=== PATIENT | male | born 1960 | race Caucasian/White ===

== ENCOUNTER → 2016-08-05 | Outpatient (REF) | payer MEDICARE, MEDICAID ==
[~2016-08-05] MED LIST: /PANT40TA OR; ALBU83IN INH; AMIL5TA PO; AMILORIDE PO; AMPI500C OR; ASPI81TA83 OR; ASPI81TA85 PO; BACT800T OR; BYDU1INJ SC; CARV12.5 PO; CIPR500T89 PO; CORE10CA PO; CORE12.5 OR; COREG PO; DOCQ100C PO; DRIS50002 PO; DULCOLAX PO; EFFE150C PO; FISH1000 PO; FLOM5CAP PO; GLUC1000 OR; HUMUINJ SC; HYDR-3713 PO; INSULADS SC; INSULANT SC; INSUR50VL SC; IPRASOL4 INH; KLOR10TA OR; KLOR1TAB69 PO; LASI40TA OR; LASI40TA PO; LIPI80TA PO; MAGN64TASA PO; METF1000 PO; NITR4TASL SL; NYST100024 TOP; NYSTATIN TOP; PAIN325T OR; PANT40TA2 PO; PERCOCET PO; PLAV75TA2 OR; PLAV75TA38 PO; POTA8TAB PO; PROS5TAB PO; RISP1TAB OR; RISP1TAB41 PO; RISP4TAB OR; RISP4TAB33 PO; SLO MAG PO; SLOW MAG; SLOWTAB PO; TRAZ300T2 OR; TRAZ300T2 PO; TRIC145T PO; TRIC145T19 OR; VASO10TA OR; VASO5TAB11 PO; VENL75TA2 OR; VICO5TAB OR; ZOCO80TA OR; ZOCO80TA PO; albuterol neb; bydureon SC; duoneb; potassium OR
[2016-08-05 14:33] LABS: MICROSCOPIC INDICATED? MAN YES (NO)
[2016-08-05 14:45] LABS: BACTERIA, URINE NONE SEEN; HYALINE CAST, URINE NONE SEEN /lpf (0-1); SQUAMOUS EPITHELIAL CELL URINE NONE SEEN /hpf (SMALL AMT); WBC, URINE 0-1 /hpf (0-3)
[2016-08-05 14:46] LABS: MICROSCOPIC EXAM PERFORMED
== END ==
LOC: M SMT 12:59
PROVIDERS: ATTEND Nurse Practitioner Women's Health
DX: N40.1 Benign prostatic hyperplasia with lower urinary tract symptoms (principal)
CPT/HCPCS: 81000; 87088; 87186; G0463

== ENCOUNTER → 2016-10-03 | Outpatient (REF) | payer MEDICARE, MEDICAID ==
[2016-10-03 11:38] LABS: ALBUMIN 3.4 GM/DL (3.2-5.2); ALKALINE PHOSPHATASE 80 U/L (45-117); ALT/SGPT 24 U/L (12-78); ANION GAP 12 MEQ/L (8-16); AST/SGOT 14 U/L (15-37); BILIRUBIN,TOTAL 0.6 MG/DL (0.2-1.0); BLOOD UREA NITROGEN 17 MG/DL (7-18); CALCIUM LEVEL 8.9 MG/DL (8.5-10.1); CARBON DIOXIDE LEVEL 28 MEQ/L (21-32); CHLORIDE LEVEL 101 MEQ/L (98-107); CHOLESTEROL LEVEL 126 MG/DL (<200); CREATININE FOR GFR 1.15 MG/DL (0.70-1.30); GLOMERULAR FILTRATION RATE > 60.0 (>56); GLUCOSE, FASTING 210 MG/DL (70-105); POTASSIUM SERUM 4.1 MEQ/L (3.5-5.1); SODIUM LEVEL 141 MEQ/L (136-145); TOTAL PROTEIN 6.8 GM/DL (6.4-8.2); TRIGLYCERIDES LEVEL 108 MG/DL (<150)
== END ==
LOC: M SFHCPLAZ 09:12
PROVIDERS: ATTEND Nurse Practitioner Family
DX: I10 Essential (primary) hypertension (principal); E78.5 Hyperlipidemia, unspecified; E11.51 Type 2 diabetes mellitus with diabetic peripheral angiopathy without gangrene; E55.9 Vitamin D deficiency, unspecified

== ENCOUNTER → 2016-10-24 | Outpatient (REF) | payer MEDICARE, MEDICAID ==
[2016-10-24 15:44] LABS: ANION GAP 9 MEQ/L (8-16); BLOOD UREA NITROGEN 19 MG/DL (7-18); CALCIUM LEVEL 9.1 MG/DL (8.5-10.1); CARBON DIOXIDE LEVEL 29 MEQ/L (21-32); CHLORIDE LEVEL 101 MEQ/L (98-107); CREATININE FOR GFR 1.12 MG/DL (0.70-1.30); GLOMERULAR FILTRATION RATE > 60.0 (>56); GLUCOSE, FASTING 163 MG/DL (70-105); SODIUM LEVEL 139 MEQ/L (136-145)
== END ==
LOC: M LABDRAW1 15:15
PROVIDERS: ATTEND Internal Medicine Endocrinology, Diabetes & Metabolism
DX: E11.65 Type 2 diabetes mellitus with hyperglycemia (principal)

== ENCOUNTER → 2017-02-15 | Outpatient (REF) | payer MEDICARE, MEDICAID ==
[~2017-02-15] MED LIST changes: +CIPR-249 PO; -CIPR500T89 PO; -METF1000 PO; +METF10004 PO; -NYST100024 TOP; +NYST1POW9 TOP; +PLAV1TAB2 PO; -PLAV75TA38 PO; +POTA1TAB21 PO; -POTA8TAB PO; -RISP1TAB41 PO; +RISP1TAB42 PO; -TRIC145T PO; +TRIC145T22 PO
[2017-02-15 14:11] LABS: MEAN CORPUSCULAR HEMOGLOBIN 32.4 pg (27.0-33.0); MEAN CORPUSCULAR HGB CONC 33.9 g/dl (32.0-36.5); MEAN CORPUSCULAR VOLUME 95.5 fl (80.0-96.0); WHITE BLOOD COUNT 12.2 K/mm3 (4.0-10.0)
[2017-02-15 14:31] LABS: ALBUMIN 3.5 GM/DL (3.2-5.2); ALKALINE PHOSPHATASE 75 U/L (45-117); ALT/SGPT 23 U/L (12-78); ANION GAP 8 MEQ/L (8-16); AST/SGOT 18 U/L (15-37); BILIRUBIN,TOTAL 0.7 MG/DL (0.2-1.0); BLOOD UREA NITROGEN 13 MG/DL (7-18); CARBON DIOXIDE LEVEL 27 MEQ/L (21-32); CHLORIDE LEVEL 104 MEQ/L (98-107); CHOLESTEROL LEVEL 107 MG/DL (<200); CREATININE FOR GFR 1.16 MG/DL (0.70-1.30); FREE T4 1.18 NG/DL (0.76-1.46); GLOMERULAR FILTRATION RATE > 60.0 (>56); GLUCOSE, FASTING 136 MG/DL (70-105); POTASSIUM SERUM 4.4 MEQ/L (3.5-5.1); SODIUM LEVEL 139 MEQ/L (136-145); TRIGLYCERIDES LEVEL 73 MG/DL (<150)
== END ==
LOC: M SFHCPLAZ 13:39
PROVIDERS: ATTEND Family Medicine
DX: G47.33 Obstructive sleep apnea (adult) (pediatric) (principal); J44.9 Chronic obstructive pulmonary disease, unspecified; E78.5 Hyperlipidemia, unspecified; E11.51 Type 2 diabetes mellitus with diabetic peripheral angiopathy without gangrene

== ENCOUNTER 2017-07-12 07:29 | Inpatient (IN) | payer MEDICARE, MEDICAID ==
[~2017-07-12] VITALS: Ht 172.7 cm; Wt 142.7 kg
[2017-07-12] MEDS ORDERED: ONDANSETRON 4MG/2ML VIAL (J2405) IV ONE (07:45)
[2017-07-12] MEDS ORDERED: JARD1TAB3 PO (07:50)
[2017-07-12] MEDS: MORPHINE 4 MG/ML 1ML SYRINGE IV PRN ×4 (07:54→13:49)
[2017-07-12] MEDS ORDERED: ADACEL/BOOSTRIX VACCINE (DIPHTH/PERTUSS/ACELL/TETANUS)0.5ML SYR (90715) IM ONE (08:00)
[2017-07-12 08:14] LABS: BASO # 0.1 10^3/uL (0.0-0.2); BASO % 0.5 % (0.0-1.0); EOS # 0.5 10^3/uL (0.0-0.50); IMMATURE GRANULOCYTE % 0.7 % (0-0); LYMPH # 2.8 10^3/uL (1.5-4.5); LYMPH % 18.3 % (24.0-44.0); MEAN CORPUSCULAR HEMOGLOBIN 31.6 pg (27.0-33.0); MEAN CORPUSCULAR HGB CONC 34.1 g/dl (32.0-36.5); MEAN CORPUSCULAR VOLUME 92.6 fl (80.0-96.0); MONO # 0.8 10^3/uL (0.0-0.8); NEUTROPHILS % 72.5 % (36.0-66.0); PLATELET COUNT, AUTOMATED 287 10^3/uL (150-450); WHITE BLOOD COUNT 15.2 10^3/uL (4.0-10.0)
[2017-07-12 08:24] LABS: INR 1.03
[2017-07-12 08:35] LABS: ALBUMIN 3.5 GM/DL (3.2-5.2); ALBUMIN/GLOBULIN RATIO 1.06 (1.00-1.93); ALKALINE PHOSPHATASE 78 U/L (45-117); ALT/SGPT 24 U/L (12-78); ANION GAP 8 MEQ/L (8-16); AST/SGOT 14 U/L (7-37); BILIRUBIN,TOTAL 0.8 MG/DL (0.2-1.0); BLOOD UREA NITROGEN 23 MG/DL (7-18); CALCIUM LEVEL 8.7 MG/DL (8.5-10.1); CARBON DIOXIDE LEVEL 26 MEQ/L (21-32); CHLORIDE LEVEL 105 MEQ/L (98-107); CREATININE FOR GFR 1.01 MG/DL (0.70-1.30); GLOMERULAR FILTRATION RATE > 60.0 (>56); GLUCOSE, FASTING 196 MG/DL (70-105); POTASSIUM SERUM 4.2 MEQ/L (3.5-5.1); SODIUM LEVEL 139 MEQ/L (136-145); TOTAL PROTEIN 6.8 GM/DL (6.4-8.2)
[2017-07-12] MEDS ORDERED: IPRASOL4 INH (09:41)
[2017-07-12] MEDS ORDERED: VENL75CA47 PO (09:56)
[2017-07-12] MEDS ORDERED: HYDR-3713 PO (09:56)
[2017-07-12] MEDS ORDERED: CLOP75TA2 PO (09:56)
[2017-07-12] MEDS ORDERED: MORPHINE 4 MG/ML 1ML SYRINGE As Ordered ONE (09:57)
[2017-07-12] MEDS ORDERED: DOXY100C37 PO (10:01)
[2017-07-12] MEDS ORDERED: BISACODYL 5 MG TAB PO PRN (10:15)
[2017-07-12] MEDS ORDERED: PERCOCET 5MG/325MG TAB PO PRN (10:15)
[2017-07-12] MEDS ORDERED: ACETAMINOPHEN TAB 650MG DOSE (2X325MG) PO PRN (10:15)
[2017-07-12] MEDS ORDERED: ALBUTEROL SULFATE 2.5 MG/0.5 ML INH NEB SOLN NEB PRN (10:45)
[2017-07-12] MEDS: PANTOPRAZOLE 40MG TAB (PROTONIX) PO SCH (10:54)
[2017-07-12] MEDS: CARVedilol 12.5 MG TAB PO SCH ×2 (10:54→20:20)
[2017-07-12] MEDS: IPRATROPIUM 0.5MG/ALBUTEROL 2.5MG INH SOL UD 3ML (DUONEB)(J7620) NEB SCH ×3 (11:14→19:47)
[2017-07-12] MEDS ORDERED: NS 1,000 ML IV SCH (11:15)
[2017-07-12] MEDS ORDERED: ALBUTEROL SULFATE 2.5 MG/0.5 ML INH NEB SOLN NEB SCH (12:00)
[2017-07-12 12:25] VITALS: BP 176/95
[2017-07-12] MEDS: SENOKOT S TAB PO SCH ×2 (13:47→20:19)
[2017-07-12] MEDS: PERCOCET 5MG/325MG TAB PO PRN ×2 (13:48→20:22)
[2017-07-12 14:00] VITALS: BP 168/82
[2017-07-12] MEDS ORDERED: NITROGLYCERIN 0.4 MG SUBL TABLET SL PRN (15:00)
[2017-07-12] MEDS ORDERED: GLUCOSE 4 GM CHEW TABLET PO PRN (15:15)
[2017-07-12] MEDS ORDERED: GLUCAGON FOR INJ 1 MG VIAL (J1610) SC PRN (15:15)
[2017-07-12] MEDS ORDERED: DEXTROSE 50% 50 ML SYRINGE IV PRN (15:15)
[2017-07-12] MEDS: POTASSIUM CHLORIDE 10 MEQ SR TABLET PO SCH (15:34)
[2017-07-12] MEDS: OMEGA-3 1050MG CAPSULE PO SCH (15:34)
[2017-07-12] MEDS: HumaLOG INSULIN (NovoLOG) PER UNIT SC SCH (17:43)
[2017-07-12] MEDS: FUROSEMIDE 40 MG TAB PO SCH (17:43)
--- NOTE | 2017-07-12 17:44 | REP ---
RIGHT ANKLE: Three views of the right ankle are performed. There are fractures of the distal tibia at the medial malleolus as well as the distal fibula with lateral displacement and angulation. Posterior malleolus of the distal tibia is also fractured. Signed by Stanley Driver MD 07/13/2017 08:25 P
--- NOTE | 2017-07-12 17:45 | REP ---
RIGHT LOWER LEG: AP and lateral views of the right lower leg are performed. Three total views are obtained. There are fractures noted of the distal fibula, medial malleolus and posterior malleolus with lateral displacement and angulation. No other fractures are seen more proximally. Signed by Stanley Driver MD 07/13/2017 08:25 P
--- NOTE | 2017-07-12 17:51 | REP ---
CHEST, TWO VIEWS: Two views of the chest are performed and compared to prior study 09/11/2012. There is mild cardiomegaly and venous hypertension. No infiltrates are seen. Mediastinal silhouette is unremarkable. There are mild degenerative changes of the spine. IMPRESSION: No acute infiltrate. Signed by Stanley Driver MD 07/13/2017 08:25 P
--- NOTE | 2017-07-12 18:14 | REP ---
Right ankle series: Three views: History: Post reduction. Comparison films done earlier demonstrate a trimalleolar fracture dislocation. Findings: Portably obtained AP lateral and oblique radiographs demonstrate improved alignment of the tibiotalar articulation. There is still considerable lateral subluxation/dislocation. The talus is displaced approximately 1.5 cm laterally. Medial and lateral malleolar and posterior tibial fracture components are again seen. The posterior tibial component appears well aligned on lateral film. There is a bone island in the calcaneus. Impression: Improved fracture dislocation at the ankle. 1.5 cm of lateral subluxation of the talus relative to the tibia persists. Signed by Ian Oh MD 07/13/2017 08:03 A
--- NOTE | 2017-07-12 19:32 | ECGEPIP ---
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
[2017-07-12] MEDS: ATORVASTATIN 20 MG TAB PO SCH (20:20)
[2017-07-12] MEDS: FENOFIBRATE 145 MG TAB (TRICOR) PO SCH (20:21)
[2017-07-12] MEDS: ENALAPRIL MALEATE 5 MG TAB PO SCH (20:21)
[2017-07-12] MEDS ORDERED: LEVEMIR (INSULIN DETEMIR) 1 UNITS/0.01ML SC ONE (21:00)
[2017-07-12 22:00] VITALS: BP 127/63
[2017-07-13] VITALS (7 sets, daily range): BP systolic 109–137; BP diastolic 16–83; O2SAT 98
[2017-07-13] MEDS: HumaLOG INSULIN (NovoLOG) PER UNIT SC SCH ×5 (00:07→20:59)
[2017-07-13] MEDS: PERCOCET 5MG/325MG TAB PO PRN ×5 (00:08→18:30)
[2017-07-13] MEDS: IPRATROPIUM 0.5MG/ALBUTEROL 2.5MG INH SOL UD 3ML (DUONEB)(J7620) NEB SCH ×4 (06:11→19:50)
[2017-07-13 06:56] LABS: MEAN CORPUSCULAR HEMOGLOBIN 31.1 pg (27.0-33.0); MEAN CORPUSCULAR HGB CONC 32.9 g/dl (32.0-36.5); MEAN CORPUSCULAR VOLUME 94.5 fl (80.0-96.0); PLATELET COUNT, AUTOMATED 282 10^3/uL (150-450); RED CELL DISTRIBUTION WIDTH 13.1 % (11.5-14.5); WHITE BLOOD COUNT 16.3 10^3/uL (4.0-10.0)
[2017-07-13 07:09] LABS: ALBUMIN/GLOBULIN RATIO 0.83 (1.00-1.93); ALKALINE PHOSPHATASE 69 U/L (45-117); ALT/SGPT 19 U/L (12-78); ANION GAP 6 MEQ/L (8-16); AST/SGOT 11 U/L (7-37); BILIRUBIN,TOTAL 1.1 MG/DL (0.2-1.0); BLOOD UREA NITROGEN 21 MG/DL (7-18); CALCIUM LEVEL 8.3 MG/DL (8.5-10.1); CARBON DIOXIDE LEVEL 31 MEQ/L (21-32); CHLORIDE LEVEL 103 MEQ/L (98-107); CREATININE FOR GFR 1.23 MG/DL (0.70-1.30); GLOMERULAR FILTRATION RATE > 60.0 (>56); GLUCOSE, FASTING 147 MG/DL (70-105); POTASSIUM SERUM 3.9 MEQ/L (3.5-5.1); SODIUM LEVEL 140 MEQ/L (136-145); TOTAL PROTEIN 6.6 GM/DL (6.4-8.2)
[2017-07-13] MEDS ORDERED: D5W/0.45% SODIUM CHLORIDE 1,000 ML IV SCH (08:00)
[2017-07-13] MEDS: OMEGA-3 1050MG CAPSULE PO SCH (08:30)
[2017-07-13] MEDS: SENOKOT S TAB PO SCH ×2 (08:30→21:21)
[2017-07-13] MEDS: PANTOPRAZOLE 40MG TAB (PROTONIX) PO SCH (08:30)
[2017-07-13] MEDS: VENLAFAXINE **XR** 75MG CAPSULE PO SCH (08:31)
[2017-07-13] MEDS: POTASSIUM CHLORIDE 10 MEQ SR TABLET PO SCH (08:31)
[2017-07-13] MEDS: CARVedilol 12.5 MG TAB PO SCH ×2 (08:32→21:21)
[2017-07-13] MEDS: ENALAPRIL MALEATE 5 MG TAB PO SCH ×2 (08:34→22:18)
[2017-07-13] MEDS: FUROSEMIDE 40 MG TAB PO SCH (08:34)
[2017-07-13] MEDS ORDERED: FINASTERIDE 5 MG TAB PO SCH (09:00)
[2017-07-13] MEDS ORDERED: TAMSULOSIN 0.4 MG CAP PO SCH (09:00)
[2017-07-13] MEDS ORDERED: ceFAZolin 1GM INJ (J0690 PER 500MG) As Ordered ONE (12:20)
[2017-07-13] MEDS ORDERED: MIDAZOLAM INJ 2 MG/2 ML VIAL (J2250) As Ordered ONE (12:38)
[2017-07-13] MEDS ORDERED: fentaNYL 100 MCG/2 ML INJECTION (J3010) As Ordered ONE (12:38)
[2017-07-13] MEDS ORDERED: LIDOCAINE 2% INJ 100 MG/5 ML SDV (FOR ANES.) As Ordered ONE (12:38)
[2017-07-13] MEDS ORDERED: ONDANSETRON 4MG/2ML VIAL (J2405) As Ordered ONE (12:38)
[2017-07-13] MEDS ORDERED: METOCLOPRAMIDE INJ 10MG/2ML VIAL (J2765) As Ordered ONE (12:38)
[2017-07-13] MEDS ORDERED: PROPOFOL 200 MG/20 ML VIAL As Ordered ONE (12:38)
[2017-07-13] MEDS ORDERED: ALBUTEROL SULFATE 2.5 MG/0.5 ML INH NEB SOLN As Ordered ONE ×2 (12:44→15:47)
[2017-07-13] MEDS ORDERED: LIDOCAINE W/EPINEPHRINE 1% 20ML VIAL As Ordered ONE (12:57)
[2017-07-13] MEDS ORDERED: ceFAZolin 2 GM/D5W 50 ML IV BAG (J0690 PER 500MG) As Ordered ONE (13:46)
[2017-07-13] MEDS ORDERED: HYDROmorphone HCL 2 MG/ML 1ML VIAL (J1170) As Ordered ONE (13:53)
[2017-07-13] MEDS ORDERED: PHENYLephrine HCL 500 MCG/5 ML (100MCG/ML) SYRINGE (J2370) As Ordered ONE ×2 (14:11→14:20)
[2017-07-13] MEDS ORDERED: SUGAMMADEX SODIUM 500 MG/5 ML VIAL (BRIDION) As Ordered ONE (15:22)
--- NOTE | 2017-07-13 15:31 | REP ---
RIGHT ANKLE: Three views of the right ankle are performed. Metallic plate and screws are seen in the distal fibula and there are metallic screws in the medial malleolus. Structures are well aligned. Ankle mortise is anatomic. 36 seconds of fluoroscopy time utilized. Signed by Stanley Driver MD 07/13/2017 08:41 P
[2017-07-13] MEDS ORDERED: PERCOCET 5MG/325MG TAB As Ordered ONE ×2 (15:33→16:12)
[2017-07-13] MEDS ORDERED: ONDANSETRON 4MG/2ML VIAL (J2405) IV PRN (16:00)
[2017-07-13] MEDS ORDERED: fentaNYL 100 MCG/2 ML INJECTION (J3010) IV PRN (16:00)
[2017-07-13] MEDS ORDERED: MORPHINE 10 MG/ML 1ML VIAL IV PRN (16:00)
[2017-07-13] MEDS ORDERED: LR 1,000 ML IV SCH (16:00)
[2017-07-13] MEDS ORDERED: PERCOCET 5MG/325MG TAB PO PRN (16:15)
[2017-07-13] MEDS ORDERED: PROMETHAZINE INJ 25 MG/ML VIAL (J2550) IV PRN (16:15)
[2017-07-13] MEDS ORDERED: ALBUTEROL SULFATE 2.5 MG/0.5 ML INH NEB SOLN INH ONE (16:15)
[2017-07-13] MEDS ORDERED: D5W/LR 1,000 ML IV SCH (16:15)
[2017-07-13] MEDS ORDERED: MORPHINE 2 MG/ML 1ML SYRINGE IV PRN (16:15)
[2017-07-13] MEDS ORDERED: GLUCAGON FOR INJ 1 MG VIAL (J1610) SC PRN (18:00)
[2017-07-13] MEDS ORDERED: GLUCOSE 4 GM CHEW TABLET PO PRN (18:00)
[2017-07-13] MEDS ORDERED: DEXTROSE 50% 50 ML SYRINGE IV PRN (18:00)
--- NOTE | 2017-07-13 21:19 | HPE ---
DATE OF ADMISSION: 07/12/2017 CHIEF COMPLAINT: Painful ankle. HISTORY: A 57-year-old white male who was in his usual state of health until this morning. He got up and went outside to have a smoke, slipped on ice, fell, sustaining injury to the right ankle. Seen in the emergency room (ER) and fracture identified as one requiring manipulation and surgical fixation. Dr. Vu has reviewed the images and agrees to take the patient to the operating room (OR) later today for operative reduction and internal fixation of the injury. The patient's pain is at this time fairly well controlled. He is status post reduction performed by Dr. Orr and is resting fairly comfortably at this time. Mr. Jones's past medical history is long and complicated and includes a history of coronary artery disease status post drug-eluting stent placed in the left anterior descending (LAD) in 2007 and in the right coronary at that time as well. His last stress test was performed by Dr. Forrest's office, and that showed an ejection fraction of 55%, residual effects from previous infarctions involving the basal inferolateral, basal inferior, and basal inferoseptal wall of moderate intensity. There was some improvement with these defects at rest. Despite these findings, it was thought that the patient was not a candidate for any intervention, and medical therapy was continued and no intervention was recommended at that time. PAST MEDICAL HISTORY: Includes: 1. High blood pressure. 2. Type 2 diabetes. He had been on insulin and continues on insulin, and with weight loss he has been able to reduce his insulin treatment intensity. 3. Chronic obstructive pulmonary disease (COPD). The patient continues to smoke, having reduced his smoking behavior from three packs per day now down to less than one. 4. He also has a history of a kidney stone and had lithotripsy and a stent in 2015 and then 2016. 5. Colonoscopy 2012. 6. Stroke occurred 2014, and he had some left-sided weakness and tingling, which has completely resolved. FAMILY HISTORY: Positive for multiple family members with diabetes mellitus. CURRENT MEDICATIONS: Include: - Effexor 75 mg three tablets daily - Bydureon 2 mg injected subcutaneous weekly on Fridays - Jardiance 25 mg daily - Proscar 5 mg by mouth daily, - Flomax 0.4 mg two tablets daily - Proventil metered-dose inhaler (MDI) two puffs every 4 as needed - DuoNeb one ampule every 4 hours as needed - Protonix 40 mg daily - Vasotec 5 mg twice a day - aspirin 81 mg daily - Plavix 75 mg daily - furosemide 40 mg twice a day - nitroglycerin sublingual 0.4 mg as needed for chest pain - potassium chloride 8 mEq daily - Slow-magnesium one twice a day - docusate sodium 100 mg twice a day - Tricor 145 mg daily - Lipitor 80 mg daily - hydrocodone/acetaminophen 5/325 one by mouth four times a day as needed for pain - Coreg 12.5 mg twice a day Last seen in the office by Jeanne Lawson on July 05, and that time medication list verified. SOCIAL HISTORY: Smoker, as noted. No significant alcohol consumption. ALLERGIES: No known drug allergies. REVIEW OF SYSTEMS: Denies headaches or dizziness. Denies chest pain, palpitations, of dysphagia. Denies abdominal pain, constipation, or diarrhea. He is able to be physically active, walking he says 2-3 hours daily. Engages in routine household activities equivalent to least four metabolic equivalents (METS) or greater without chest pain or dyspnea. Denies orthopnea or palpitations. No recent change in ankle swelling and denies calf pain. PHYSICAL EXAMINATION: GENERAL: The patient is alert, oriented, pleasant, cooperative. No acute distress. Blood pressure 166/71, pulse 79, respiratory rate 16, 96% oxygen saturation on room air. HEENT: Normocephalic, atraumatic. Pupils equal and reactive. Facies are symmetric. Speech is clear. No neck mass. No carotid bruits are heard. No thyroid enlargement or nodules are noted. LUNGS: Equal expansion. Reasonable air flow. No wheezing, rales, or rhonchi heard. HEART: Regular rhythm. No murmur identified. ABDOMEN: Obese. No mass, guarding, or tenderness. No rebound. EXTREMITIES: Right ankle is in a splint. He has no edema. Pulse palpable in the left. NEUROLOGIC: He is alert. No deficits remain at this time. His gait was not tested, but he moves all extremities spontaneously and denies a sensory deficit. According the ER, he has a weight of 139.253 kg. Other data obtained so far in the emergency department include white count 15,200 with hemoglobin of 15.9, platelet count 287,000. Electrolytes were remarkable only for BUN of 23, creatinine 1.01. His last A1c done in the office was in 2015, and it was over 11. The test had been requested in December, but for reasons unknown patient had not had the test completed. Protime was normal at 13.6. EKG was reviewed and shows regular sinus rhythm. Poor R-wave progression. No changes from 2015 record. X-ray of the tibia-fibula/ankle show a fracture which is requiring orthopedics consultation. Chest x-ray, which is anterior-posterior (AP) and lateral, shows no definite infiltrate. The bases are hazy, likely due to obesity. Heart size is increased, but upper lobe distribution is not appreciated, although bronchial markings are prominent. 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 This fracture is deemed by art specialist to require surgical immobilization to achieve an optimal outcome. The patient has been nothing by mouth. He has not had his morning medications yet. We will try to make sure that he gets his carvedilol and Protonix before surgery. He will remain nothing by mouth through the day. We have ordered four times a day blood sugars with a parameter for calling the physician. Will provide some supportive hydration through the day in preparation for his surgery, which is anticipated will be later today. The fact that the patient is on dual antiplatelet therapy was made clear to the surgeon, who acknowledges the hazard and feels the need to proceed urgently. The patient has multiple risk factors that correlate with revised cardiac risk index identification of risk factors, including history of coronary disease, history of stroke/transient ischemic attack (TIA), history of diabetes mellitus requiring insulin therapy. This aggregate identifies him according to revised cardiac risk index criteria as being greater than 11% of cardiovascular event as a consequences of surgery, unless his good functional status is reassuring. The fact that he had a stress test that did not show a need for intervention is also somewhat reassuring, and at this time he should be considered optimized as long as he continues on his beta blockade with carvedilol, which should not be interrupted. It is not likely considering that his recent nuclear medicine study did not, in the opinion of his cotton picker operator, show a need for intervention, that he would not likely benefit or be a candidate for intervention from a cardiovascular standpoint. At this point I think he should proceed to the OR with acknowledgment of his high-risk status. The patient is aware of this status and willing to accept that reality in order to have his ankle repaired. We will resume his usual medications after surgery. We will do fingersticks four times a day preoperatively and supportive hydration with glucose if required.
[2017-07-13] MEDS: ATORVASTATIN 20 MG TAB PO SCH (21:20)
[2017-07-13] MEDS: FENOFIBRATE 145 MG TAB (TRICOR) PO SCH (21:20)
[2017-07-14] MEDS: PERCOCET 5MG/325MG TAB PO PRN ×4 (05:09→19:52)
[2017-07-14 06:00] VITALS: BP 126/69
--- NOTE | 2017-07-14 06:02 | IPNPDOC ---
Subjective Date Seen The patient was seen on 07/13/17. Subjective Chief Complaint/HPI The patient is a 57-year-old male admitted with a reason for visit of Ankle Fx. Events since last encounter Patient was seen and examined postop. He states that he is comfortable. Pain controlled. Denies numbness in the RLE where he was operated. Patient had not eaten all day. States that he is hungry General: Reports: Normal Appetite, Denies: Chills, Night Sweats, Fatigue, Malaise Cardiovascular: Denies: Chest Pain, Palpitations, Orthopnea, Paroxysmal Noc. Dyspnea, Lt Headedness Gastrointestinal: Denies: Nausea, Vomiting, Abdominal Pain, Diarrhea, Constipation Objective Physical Examination General Exam: Positive: Alert, No Acute Distress ENT Exam: Positive: Atraumatic, Mucous membr. moist/pink, Pharynx Normal Chest Exam: Positive: Clear to auscultation, Normal air movement Heart Exam: Positive: Rate Normal, Regular Rhythm, Normal S1, Normal S2, Negative: Murmurs, Rubs Abdomen Exam: Positive: Normal bowel sounds, Soft, Negative: Tenderness, Hepatospenomegaly Extremity Exam: Positive: Normal pulses, Other (RLE in cast.), Negative: Clubbing, Cyanosis, Edema Psych Exam: Positive: Mental status NL, Mood NL, Oriented x 3 Assessment /Plan Problems (1) Ankle fracture Status: Acute Problem Text: Postop ORIF of the R ankle.Surgeon, Dr. Vu. Will defer pain management, bowel management and rehab to orthopedic group. Pain reasonably controlled at the moment postop. (2) CAD (coronary artery disease) Status: Chronic Problem Text: postop, will hold antihypertensive until tomorrow, BP controlled (3) TONY (obstructive sleep apnea) Status: Chronic Problem Text: brought CPAP from home (4) Hyperlipidemia Status: Chronic Problem Text: cont home medications, Lipitor (5) DM type 2 (diabetes mellitus, type 2) Status: Chronic Problem Text: SSI Plan/VTE VTE Prophylaxis Ordered?: Yes VS, I&O, 24H, Fishbone Vital Signs/I&O Vital Signs Date Time Temp Pulse Resp B/P (MAP) Pulse Ox O2 Delivery O2 Flow Rate FiO2 07/14/17 05:39 18 07/13/17 21:42 98 Room Air 07/13/17 21:21 89 132/68 07/13/17 20:45 98.0 2.0 I&O- Last 24 Hours up to 6 AM 07/14/17 06:00 Intake Total 2815 ml Output Total 1225 ml Balance 1590 ml Laboratory Data 24H LABS Laboratory Tests 2 07/13/17 11:36: Bedside Glucose (Misc Panel) 131H 07/13/17 16:58: Bedside Glucose (Misc Panel) 232H 07/13/17 20:56: Bedside Glucose (Misc Panel) 246H 07/14/17 05:46: Bedside Glucose (Misc Panel) 171H GME ATTESTATION GME ATTESTATION My faculty preceptor for this patient encounter was physically present during the encounter and was fully available. All aspects of the patient interview, examination, medical decision making process, and medical care plan development were reviewed and approved by the faculty preceptor. The faculty preceptor is aware and concurs with the plan as stated in the body of this note and will attest to such by his/her cosignature. YU PIÑA DO Jul 14, 2017 06:02
[2017-07-14] MEDS: CARVedilol 12.5 MG TAB PO SCH ×2 (08:10→19:53)
[2017-07-14] MEDS: SENOKOT S TAB PO SCH ×2 (08:10→19:52)
[2017-07-14] MEDS: MIRALAX *UNIT DOSE* 17GM PACKET PO SCH (08:10)
[2017-07-14] MEDS: VENLAFAXINE **XR** 75MG CAPSULE PO SCH (08:10)
[2017-07-14] MEDS: ENALAPRIL MALEATE 5 MG TAB PO SCH ×2 (08:10→19:53)
[2017-07-14] MEDS: HumaLOG INSULIN (NovoLOG) PER UNIT SC SCH ×4 (08:10→20:26)
[2017-07-14] MEDS: PANTOPRAZOLE 40MG TAB (PROTONIX) PO SCH (08:10)
[2017-07-14] MEDS: OMEGA-3 1050MG CAPSULE PO SCH (08:10)
[2017-07-14] MEDS: POTASSIUM CHLORIDE 10 MEQ SR TABLET PO SCH (08:11)
[2017-07-14] MEDS: IPRATROPIUM 0.5MG/ALBUTEROL 2.5MG INH SOL UD 3ML (DUONEB)(J7620) NEB SCH (08:40)
--- NOTE | 2017-07-14 09:05 | IPNPDOC ---
Subjective Date Seen The patient was seen on 07/14/17. Subjective Chief Complaint/HPI The patient is a 57-year-old male admitted with a reason for visit of Ankle Fx. Events since last encounter Patient seen and examined this morning. Patient had eaten dinner last night and is about to order breakfast. No SOB, CP, fevers. Pain is tolerated. Has not had BM, but is passing gas. General: Reports: Normal Appetite, Denies: Chills, Night Sweats, Fatigue, Malaise Pulmonary: Denies: Dyspnea, Cough Cardiovascular: Denies: Chest Pain, Palpitations, Orthopnea, Paroxysmal Noc. Dyspnea, Lt Headedness Neurological: Denies: Weakness, Numbness, Change in speech, Confusion Objective Physical Examination General Exam: Positive: Alert, No Acute Distress ENT Exam: Positive: Atraumatic, Mucous membr. moist/pink, Pharynx Normal Chest Exam: Positive: Clear to auscultation, Normal air movement Heart Exam: Positive: Rate Normal, Regular Rhythm, Normal S1, Normal S2, Negative: Murmurs, Rubs Abdomen Exam: Positive: Normal bowel sounds, Soft, Negative: Tenderness, Hepatospenomegaly Extremity Exam: Positive: Normal pulses, Other (RLE in cast.), Negative: Clubbing, Cyanosis, Edema Psych Exam: Positive: Mental status NL, Mood NL, Oriented x 3 Assessment /Plan Problems (1) Ankle fracture Status: Acute Problem Text: Postop ORIF of the R ankle. POD#2. Surgeon, Dr. Vu. Will defer pain management, bowel management and rehab to orthopedic group. Pain reasonably controlled at the moment. (2) HTN (hypertension) Problem Text: cont on home meds, fair control of BP overnight. (3) CAD (coronary artery disease) Status: Chronic Problem Text: cont on home meds. Furosemide, enalapril, coreg (4) Hyperlipidemia Status: Chronic Problem Text: cont home medications, Lipitor (5) DM type 2 (diabetes mellitus, type 2) Status: Chronic Problem Text: SSI (6) TONY (obstructive sleep apnea) Status: Chronic Problem Text: brought CPAP from home (7) History of CVA (cerebrovascular accident) Status: Chronic Plan/VTE VTE Prophylaxis Ordered?: Yes VS, I&O, 24H, Fishbone Vital Signs/I&O Vital Signs Date Time Temp Pulse Resp B/P (MAP) Pulse Ox O2 Delivery O2 Flow Rate FiO2 07/14/17 08:10 126/69 07/14/17 08:10 80 07/14/17 06:00 98.4 17 97 Nasal Cannula 2.0 I&O- Last 24 Hours up to 6 AM 07/14/17 06:00 Intake Total 3175 ml Output Total 1225 ml Balance 1950 ml Laboratory Data 24H LABS Laboratory Tests 2 07/13/17 11:36: Bedside Glucose (Misc Panel) 131H 07/13/17 16:58: Bedside Glucose (Misc Panel) 232H 07/13/17 20:56: Bedside Glucose (Misc Panel) 246H 07/14/17 05:46: Bedside Glucose (Misc Panel) 171H GME ATTESTATION GME ATTESTATION My faculty preceptor for this patient encounter was physically present during the encounter and was fully available. All aspects of the patient interview, examination, medical decision making process, and medical care plan development were reviewed and approved by the faculty preceptor. The faculty preceptor is aware and concurs with the plan as stated in the body of this note and will attest to such by his/her cosignature. YU PIÑA DO Jul 14, 2017 09:04
--- NOTE | 2017-07-14 09:11 | CR ---
DATE OF CONSULTATION: 07/12/2017 CONSULTING PROVIDER: Dr. Mendez CHIEF COMPLAINT: Right ankle pain. HISTORY: The patient is a 57-year-old male who presented to the emergency room with complaints of right ankle pain, swelling and deformity. The patient had a mechanical fall down three steps. Closed reduction and splinting was done in the emergency department. Dr. Deni Vu was consulted from orthopedics. CURRENT MEDICATIONS: - DuoNeb 0.5/2.5 mg per 3 mL solution every 4 hours as needed to use with nebulizer as needed - Nystatin 1000 units per gram as directed externally twice a day for rash - Bydureon 2 mL pen injectors to use subcutaneous weekly - Lantus 30 unit subcutaneous daily at bedtime - Tricor 145 mg daily - Colace 100 mg capsule twice a day as needed - Lipitor 80 mg tablets daily - Slow-mag 535 mg tablets twice a day - potassium 8 mEq one daily - Nitro-Stat 0.4 mg every 5 minutes as needed - aspirin 81 mg daily - Vasotec 10 mg half of a tablet twice a day - Lasix 40 mg twice a day - Plavix 75 mg daily - ProAir inhaler 108 mcg to take two puffs every 4 hours as needed - Effexor 75 mg three tablets orally twice a day - Protonix 40 mg daily - Flomax 0.4 mg two capsules daily - fish oil 1000 mcg capsules daily - Coreg 12.5 mg tablets twice daily - Proscar 5 mg daily - Vicodin 5/325 one tablet four times daily as needed ALLERGIES: No known drug allergies. PAST MEDICAL HISTORY: 1. Hypertension. 2. Coronary artery disease. 3. Type 2 diabetes. 4. Nicotine dependence. 5. Hyperlipidemia. 6. Chronic obstructive pulmonary disease (COPD). 7. Depression. 8. Morbid obesity. 9. Osteoarthritis. 10. Diastolic congestive heart failure (CHF). 11. Vitamin D deficiency. 12. History of nephrolithiasis. 13. History of cerebrovascular accident. SURGICAL HISTORY: 1. Percutaneous transluminal coronary angioplasty/DAVID stent in the left anterior descending artery two weeks later RCA. 2. Lithotripsy. 3. Stent removal. 4. Colonoscopy. 5. Oral surgery. FAMILY HISTORY: Significant for diabetes in mother, father and sister. Father from lung cancer. Sister from myocardial infarction. SOCIAL HISTORY: Tobacco use. Negative alcohol screening. The patient is disabled from work. REVIEW OF SYSTEMS: The patient denies fevers, chills, nausea, or vomiting. No current chest pain or current shortness of breath. No current headache. Does have numbness and tingling in his extremities secondary to his diabetic neuropathy. PHYSICAL EXAMINATION: VITAL SIGNS: 5 feet 8 inches, 307 pounds, blood pressure 185/91, heart rate 87, respirations 18, SpO2 98, temperature 96.7. The patient is a 57-year-old male who appears to be resting comfortably. Right lower extremity elevated in a posterior splint. Reports that pain level is currently at a 4 status post closed reduction and splinting, elevation and pain medications. Examination of the right lower extremity done in the splint. The patient is status post closed reduction. Dorsalis pedis pulse was faintly palpated. This was confirmed earlier by emergency room staff via Doppler. Forefoot and toes appear to be warm and well perfused. He is able to move his toes freely. Sensation is decreased secondary to his diabetic neuropathy. Capillary refill is less than 2 seconds. IMAGING: Imaging did reveal a trimalleolar fracture to the right ankle with displacement and angulation. It shows some improvement on post reduction view. IMPRESSION: 1. Right ankle trimalleolar fracture/dislocation status post closed reduction. PLAN: Continue the patient in posterior splint with ice and elevation. Admit to medicine for medical optimization. Schedule patient for operating room as he will likely undergo an open reduction, internal fixation (ORIF) of this fracture. Above recommendations per Dr. Deni Vu. [facility]
[2017-07-14] MEDS: FUROSEMIDE 40 MG TAB PO SCH ×2 (09:48→16:50)
[2017-07-14 14:00] VITALS: BP 139/56
[2017-07-14] MEDS: ATORVASTATIN 20 MG TAB PO SCH (19:51)
[2017-07-14] MEDS: FENOFIBRATE 145 MG TAB (TRICOR) PO SCH (19:52)
[2017-07-14 22:00] VITALS: BP 126/77
[2017-07-15] MEDS: PERCOCET 5MG/325MG TAB PO PRN ×4 (03:23→21:07)
[2017-07-15 06:00] VITALS: BP 134/75
--- NOTE | 2017-07-15 08:17 | IPN ---
DATE: 07/13/2017 SUBJECTIVE: The patient feels good at this time. Pain in his right ankle has subsided substantially since surgery. He is at this time denying fevers, cough, chest pain or trouble with abdominal pain and seems to be quite comfortable. He does have his obstructive sleep apnea (TONY) supporting equipment, his C-PAP machine ready at the bedside. He is currently housed on [address], but will be moving to [address] for appropriate TONY monitoring in that care environment. He is status post surgical repair of his ankle and doing well at this time. OBJECTIVE: VITAL SIGNS: Blood pressure 137/76, pulse 81, respiratory rate 16, temperature 98.5, oxygen 92% at 3 liters most recently documented. HEENT: Normocephalic. Alert and pleasant, has symmetric facies. Speech is clear. NECK: Supple. LUNGS: Equal expansion. Air movement is good with no wheezing, rales or rhonchi. HEART: Regular rhythm, no murmur heard at this time. ABDOMEN: Soft. No tenderness. No guarding. EXTREMITIES: He moves his toes well. There is no obvious swelling. LABORATORY DATA: Include white count 6300 this morning. Chemistries unremarkable except for a BUN of 21, glucose is 147 this morning 163 at 0530 hours. Hemoglobin A1c was 7.3, significant improvement from last time it had been measured in the outpatient arena. Overnight his blood sugars ranged from 112 to 232 this afternoon. ASSESSMENT: Patient with multiple chronic problems including chronic obstructive pulmonary disease (COPD), had a recent exacerbation treated with doxycycline from the clinic, history of coronary artery disease status post stent to the LAD and the right coronary in 2007, type 2 diabetes, history of tobacco abuse, history of stroke in 2014, multiple risk factors for surgery, which so for he seems to have come through quite well, and status post open reduction internal fixation ankle fracture right. PLAN: Tomorrow will resume, provided his blood pressures are satisfactory, resume his usual medications holding off on his diuretic therapy and Jardiance until he is clearly eating well and hydrating adequately. His activity requirements and physical therapy progress per direction of male infertility specialist, Dr. Vu.
[2017-07-15] MEDS: MIRALAX *UNIT DOSE* 17GM PACKET PO SCH (08:42)
[2017-07-15] MEDS: POTASSIUM CHLORIDE 10 MEQ SR TABLET PO SCH (08:42)
[2017-07-15] MEDS: HumaLOG INSULIN (NovoLOG) PER UNIT SC SCH ×4 (08:42→21:00)
[2017-07-15] MEDS: VENLAFAXINE **XR** 75MG CAPSULE PO SCH (08:43)
[2017-07-15] MEDS: PANTOPRAZOLE 40MG TAB (PROTONIX) PO SCH (08:43)
[2017-07-15] MEDS: OMEGA-3 1050MG CAPSULE PO SCH (08:43)
[2017-07-15] MEDS: SENOKOT S TAB PO SCH ×2 (08:43→21:09)
[2017-07-15] MEDS: CARVedilol 12.5 MG TAB PO SCH ×2 (08:43→21:09)
[2017-07-15] MEDS: ENALAPRIL MALEATE 5 MG TAB PO SCH ×2 (08:43→21:10)
[2017-07-15] MEDS: FUROSEMIDE 40 MG TAB PO SCH ×2 (08:43→17:08)
[2017-07-15 14:00] VITALS: BP 131/71
[2017-07-15] MEDS: ATORVASTATIN 20 MG TAB PO SCH (21:07)
[2017-07-15] MEDS: FENOFIBRATE 145 MG TAB (TRICOR) PO SCH (21:08)
[2017-07-15 22:00] VITALS: BP 126/80
[2017-07-16 06:00] VITALS: BP 144/83
[2017-07-16] MEDS: MIRALAX *UNIT DOSE* 17GM PACKET PO SCH (09:00)
[2017-07-16] MEDS: PANTOPRAZOLE 40MG TAB (PROTONIX) PO SCH (09:08)
[2017-07-16] MEDS: HumaLOG INSULIN (NovoLOG) PER UNIT SC SCH ×4 (09:08→21:00)
[2017-07-16] MEDS: CARVedilol 12.5 MG TAB PO SCH ×2 (09:08→20:52)
[2017-07-16] MEDS: OMEGA-3 1050MG CAPSULE PO SCH (09:08)
[2017-07-16] MEDS: VENLAFAXINE **XR** 75MG CAPSULE PO SCH (09:08)
[2017-07-16] MEDS: SENOKOT S TAB PO SCH ×2 (09:09→20:53)
[2017-07-16] MEDS: FUROSEMIDE 40 MG TAB PO SCH ×2 (09:09→17:16)
[2017-07-16] MEDS: ENALAPRIL MALEATE 5 MG TAB PO SCH ×2 (09:09→20:53)
[2017-07-16] MEDS: POTASSIUM CHLORIDE 10 MEQ SR TABLET PO SCH (09:09)
[2017-07-16 09:11] LABS: MEAN CORPUSCULAR HEMOGLOBIN 31.3 pg (27.0-33.0); MEAN CORPUSCULAR HGB CONC 33.3 g/dl (32.0-36.5); PLATELET COUNT, AUTOMATED 244 10^3/uL (150-450); RED CELL DISTRIBUTION WIDTH 12.8 % (11.5-14.5); WHITE BLOOD COUNT 14.2 10^3/uL (4.0-10.0)
--- NOTE | 2017-07-16 09:29 | IPNPDOC ---
Subjective Date Seen The patient was seen on 07/15/17. Subjective Chief Complaint/HPI The patient is a 57-year-old male admitted with a reason for visit of Ankle Fx. Events since last encounter Patient seen at bedside. He has no complaints at the moment. States that he could not tolerate PT on the stairs, and therefore was not ready to go home. Patient denies SOB, CP. Having BM. NO dysuria, fevers. General: Reports: Normal Appetite, Denies: Chills, Night Sweats, Fatigue, Malaise Pulmonary: Denies: Dyspnea, Cough Cardiovascular: Denies: Chest Pain, Palpitations, Orthopnea, Paroxysmal Noc. Dyspnea, Lt Headedness Objective Physical Examination General Exam: Positive: Alert, No Acute Distress ENT Exam: Positive: Atraumatic, Mucous membr. moist/pink, Pharynx Normal Chest Exam: Positive: Clear to auscultation, Normal air movement Heart Exam: Positive: Rate Normal, Regular Rhythm, Normal S1, Normal S2, Negative: Murmurs, Rubs Abdomen Exam: Positive: Normal bowel sounds, Soft, Negative: Tenderness, Hepatospenomegaly Extremity Exam: Positive: Normal pulses, Other (RLE in cast.), Negative: Clubbing, Cyanosis, Edema Psych Exam: Positive: Mental status NL, Mood NL, Oriented x 3 Assessment /Plan Problems (1) Ankle fracture Status: Acute Problem Text: Postop ORIF of the R ankle. POD#3. Surgeon, Dr. Vu. Will defer pain management, bowel management and rehab to orthopedic group. Pain reasonably controlled at the moment. Patient was not able to ambulate on the stairs, is not safe for discharge at this time. (2) HTN (hypertension) Problem Text: cont on home meds, fair control of BP overnight. (3) CAD (coronary artery disease) Status: Chronic Problem Text: cont on home meds. Furosemide, enalapril, coreg (4) Hyperlipidemia Status: Chronic Problem Text: cont home medications, Lipitor (5) DM type 2 (diabetes mellitus, type 2) Status: Chronic Problem Text: SSI (6) TONY (obstructive sleep apnea) Status: Chronic Problem Text: brought CPAP from home (7) History of CVA (cerebrovascular accident) Status: Chronic Plan/VTE VTE Prophylaxis Ordered?: Yes VS, I&O, 24H, Fishbone Vital Signs/I&O Vital Signs Date Time Temp Pulse Resp B/P (MAP) Pulse Ox O2 Delivery O2 Flow Rate FiO2 07/16/17 09:08 68 144/83 07/16/17 06:00 97.7 20 95 Room Air 07/14/17 06:00 2.0 I&O- Last 24 Hours up to 6 AM 07/16/17 06:00 Intake Total 2350 ml Output Total 3100 ml Balance -750 ml Laboratory Data 24H LABS Laboratory Tests 2 07/15/17 11:22: Bedside Glucose (Misc Panel) 133H 07/15/17 16:40: Bedside Glucose (Misc Panel) 179H 07/15/17 20:04: Bedside Glucose (Misc Panel) 117H 07/16/17 06:10: Bedside Glucose (Misc Panel) 120H 07/16/17 09:02: Nucleated Red Blood Cells % (auto) 0.0 CBC/BMP Laboratory Tests 07/16/17 09:02 Red Blood Count 4.66, Mean Corpuscular Volume 94.0, Mean Corpuscular Hemoglobin 31.3, Mean Corpuscular Hemoglobin Concent 33.3, Red Cell Distribution Width 12.8 GME ATTESTATION GME ATTESTATION My faculty preceptor for this patient encounter was physically present during the encounter and was fully available. All aspects of the patient interview, examination, medical decision making process, and medical care plan development were reviewed and approved by the faculty preceptor. The faculty preceptor is aware and concurs with the plan as stated in the body of this note and will attest to such by his/her cosignature. YU PIÑA DO Jul 16, 2017 09:29
[2017-07-16 09:41] LABS: ALBUMIN 3.3 GM/DL (3.2-5.2); ALBUMIN/GLOBULIN RATIO 0.87 (1.00-1.93); ALKALINE PHOSPHATASE 66 U/L (45-117); ALT/SGPT 18 U/L (12-78); ANION GAP 5 MEQ/L (8-16); AST/SGOT 25 U/L (7-37); BILIRUBIN,TOTAL 1.2 MG/DL (0.2-1.0); BLOOD UREA NITROGEN 15 MG/DL (7-18); CALCIUM LEVEL 8.6 MG/DL (8.5-10.1); CARBON DIOXIDE LEVEL 35 MEQ/L (21-32); CHLORIDE LEVEL 94 MEQ/L (98-107); CREATININE FOR GFR 0.99 MG/DL (0.70-1.30); GLOMERULAR FILTRATION RATE > 60.0 (>56); GLUCOSE, FASTING 164 MG/DL (70-105); POTASSIUM SERUM 4.1 MEQ/L (3.5-5.1); SODIUM LEVEL 134 MEQ/L (136-145); TOTAL PROTEIN 7.1 GM/DL (6.4-8.2)
[2017-07-16 14:00] VITALS: BP 132/74
[2017-07-16] MEDS: PERCOCET 5MG/325MG TAB PO PRN (17:16)
[2017-07-16] MEDS: ATORVASTATIN 20 MG TAB PO SCH (20:53)
[2017-07-16] MEDS: FENOFIBRATE 145 MG TAB (TRICOR) PO SCH (20:55)
[2017-07-16 22:00] VITALS: BP 161/86
[2017-07-17 06:00] VITALS: BP 123/59
[2017-07-17] MEDS: MIRALAX *UNIT DOSE* 17GM PACKET PO SCH (09:00)
[2017-07-17] MEDS: POTASSIUM CHLORIDE 10 MEQ SR TABLET PO SCH (09:52)
[2017-07-17] MEDS: OMEGA-3 1050MG CAPSULE PO SCH (09:52)
[2017-07-17] MEDS: SENOKOT S TAB PO SCH ×2 (09:52→19:49)
[2017-07-17] MEDS: ENALAPRIL MALEATE 5 MG TAB PO SCH ×2 (09:52→19:48)
[2017-07-17] MEDS: PANTOPRAZOLE 40MG TAB (PROTONIX) PO SCH (09:52)
[2017-07-17] MEDS: FUROSEMIDE 40 MG TAB PO SCH ×2 (09:53→18:00)
[2017-07-17] MEDS: VENLAFAXINE **XR** 75MG CAPSULE PO SCH (09:53)
[2017-07-17] MEDS: CARVedilol 12.5 MG TAB PO SCH ×2 (09:53→19:55)
[2017-07-17] MEDS: HumaLOG INSULIN (NovoLOG) PER UNIT SC SCH ×4 (09:54→20:26)
[2017-07-17] MEDS ORDERED: **NOTE PATIENT COMMENT** MISC XX SCH (13:15)
[2017-07-17] MEDS: ASPIRIN 81 MG ENTERIC TAB PO SCH (14:10)
[2017-07-17] MEDS: CLOPIDOGREL 75 MG TAB PO SCH (14:10)
[2017-07-17] MEDS: PERCOCET 5MG/325MG TAB PO PRN ×2 (14:11→19:48)
[2017-07-17] MEDS: NICOTINE 21MG/24HR 1 EA TRANSDERMAL TD SCH (18:01)
[2017-07-17] MEDS: ATORVASTATIN 20 MG TAB PO SCH (19:49)
[2017-07-17] MEDS: FENOFIBRATE 145 MG TAB (TRICOR) PO SCH (19:49)
[2017-07-17 22:00] VITALS: BP 136/71
[2017-07-18 06:00] VITALS: BP 114/60
[2017-07-18 07:05] LABS: MEAN CORPUSCULAR HEMOGLOBIN 31.3 pg (27.0-33.0); MEAN CORPUSCULAR HGB CONC 33.6 g/dl (32.0-36.5); MEAN CORPUSCULAR VOLUME 93.3 fl (80.0-96.0); PLATELET COUNT, AUTOMATED 270 10^3/uL (150-450); RED CELL DISTRIBUTION WIDTH 12.4 % (11.5-14.5); WHITE BLOOD COUNT 12.7 10^3/uL (4.0-10.0)
[2017-07-18 07:30] LABS: ANION GAP 6 MEQ/L (8-16); BLOOD UREA NITROGEN 13 MG/DL (7-18); CALCIUM LEVEL 8.9 MG/DL (8.5-10.1); CARBON DIOXIDE LEVEL 33 MEQ/L (21-32); CHLORIDE LEVEL 97 MEQ/L (98-107); CREATININE FOR GFR 1.08 MG/DL (0.70-1.30); GLOMERULAR FILTRATION RATE > 60.0 (>56); GLUCOSE, FASTING 193 MG/DL (70-105); POTASSIUM SERUM 3.5 MEQ/L (3.5-5.1); SODIUM LEVEL 136 MEQ/L (136-145)
[2017-07-18 08:04] VITALS: BP 124/71
[2017-07-18] MEDS: ASPIRIN 81 MG ENTERIC TAB PO SCH (08:04)
[2017-07-18] MEDS: OMEGA-3 1050MG CAPSULE PO SCH (08:04)
[2017-07-18] MEDS: VENLAFAXINE **XR** 75MG CAPSULE PO SCH (08:04)
[2017-07-18] MEDS: CARVedilol 12.5 MG TAB PO SCH (08:04)
[2017-07-18] MEDS: HumaLOG INSULIN (NovoLOG) PER UNIT SC SCH (08:04)
[2017-07-18] MEDS: ENALAPRIL MALEATE 5 MG TAB PO SCH (08:04)
[2017-07-18] MEDS: PANTOPRAZOLE 40MG TAB (PROTONIX) PO SCH (08:04)
[2017-07-18] MEDS: CLOPIDOGREL 75 MG TAB PO SCH (08:05)
[2017-07-18] MEDS: SENOKOT S TAB PO SCH (08:05)
[2017-07-18] MEDS: FUROSEMIDE 40 MG TAB PO SCH (08:05)
[2017-07-18] MEDS: POTASSIUM CHLORIDE 10 MEQ SR TABLET PO SCH (08:05)
[2017-07-18] MEDS: MIRALAX *UNIT DOSE* 17GM PACKET PO SCH (08:05)
[2017-07-18] MEDS: NICOTINE 21MG/24HR 1 EA TRANSDERMAL TD SCH (08:06)
--- NOTE | 2017-07-18 10:06 | IPN ---
DATE: 07/17/2017 Vinnie is seen in [facility]. I do not think he is shelter facility ([facility]) level of care. There is a note from yesterday, but not from 07/15/2017. He is status post open reduction internal fixation (ORIF) of the right ankle. Orthopedics has been following him. I do not see where he is on any deep venous thrombosis (DVT) prophylaxis. His medical problems include type 2 diabetes, hypertension, coronary artery disease, hyperlipidemia, sleep apnea, and history of stroke. He has not been back on any basal insulin or any of his regular diabetic medications. He is on a sliding scale of insulin with coverage, receiving just a few units a day since he has been on an enforced diabetic diet. At home, he was on 30 units of Lantus insulin, in addition to Jardiance and Bydureon. No chest pain, shortness of breath, or significant pain. PHYSICAL EXAMINATION: Vital signs stable, blood pressure 123/59. Lungs clear. Heart regular rate, rhythm. Abdomen soft, obese, nontender. Right leg is in a cast. LABORATORY DATA: Blood sugars have been consistently around 150. No other labs ordered for today. IMPRESSION: 1. Postoperative right ankle fracture. I called the floor and asked them to inquire from orthopedics whether they want him on deep venous thrombosis (DVT) prophylaxis and what prophylaxis they would like. 2. Diabetes. Stop his fingersticks with coverage. He is only getting a few units a day. He has not required any basal insulin on an enforced diabetic diet. We will restart his Jardiance. 3. Hypertension. Well controlled on current regimen. 4. Hyperlipidemia. Continue statin therapy with atorvastatin. 5. Coronary artery disease. Continue his carvedilol. Restart his aspirin 81 mg daily.
[2017-07-18] MEDS: PERCOCET 5MG/325MG TAB PO PRN (11:28)
--- NOTE | 2017-07-19 12:07 | RO ---
DATE OF PROCEDURE: 07/13/2017 POSTOPERATIVE DIAGNOSIS: Right ankle trimalleolar fracture dislocation. POSTOPERATIVE DIAGNOSIS: Right ankle trimalleolar fracture dislocation. PROCEDURE PERFORMED: Open reduction internal fixation of bimalleolar component with trimalleolar fracture-dislocation. SURGEON: Dr. Deni Vu ENGLISH HORN PLAYER: LUCITA Marr ESTIMATED BLOOD LOSS: Less than 50 mL. No tourniquet inflated. ANESTHESIA: General. INDICATIONS: Mr. Jones is a 57-year-old gentleman who slipped sustained a fracture dislocation of the right ankle. He had significant medical comorbidities. He has elected for operative intervention of this unstable fracture dislocation. Consent reviewed in detail with the patient including a to discussion of the pathology involved, the procedure proposed, alternatives including doing nothing and risks including but not limited to pain, failure, infection, bleeding, blood loss, incomplete relief of symptoms, need for additional surgery and other issues. He agrees to proceed. DESCRIPTION OF PROCEDURE: Operative course: Identified holding area, site, side verified, brought to the operating room. Once anesthesia was administered he was positioned for exposure of the right lower extremity for ankle surgery. Tourniquet was not inflated for this case. He was sterilely prepped, draped usual fashion. Next, the lateral malleolus approached first. Incisions both were infiltrated with 1% lidocaine with epinephrine. Next, incision made laterally using a 10 blade, developed down through skin and subcuticular tissues to the lateral aspect of the fibula. Mr. Mendoza assisted using retractors. Next, once we exposed the fibula, I utilized fracture reduction forceps to reduce the fracture which was comminuted and distal; there was anterior portion as well attached to the ligamentous structures to the tibia. Next, the reduction appeared to be anatomic on x-rays. I elected for a one third tubular plate because due to the nature of the fracture, I could not reduce the main portion of fracture with an AP lag screw. Next, while holding the fracture to length using the fracture reduction clamps, I applied a one third tubular plate which was contoured and secured with cancellus and cortical screws. Next, the anterior collicular fracture was reduced anatomically and I placed the guidewire across the fracture and secured it with a cancellus shaft cannulated 4-0 screw. Next, imaging studies reflected nearly anatomic reduction. Attention was turned to the medial malleolar fracture. The incision made with a 10 blade, developed down through subcuticular tissues to the fracture fragment. The saphenous vein was protected, nerve roots protected, fracture fragment was reduced. There was nothing impinging the fracture site. I placed three guidewires for the 4-0 cannulated set, secured the medial malleolus, then I overdrilled the anterior and posterior most guidewires and placed 40 mm shaft cancellus screws securing the medial malleolus. Next, reduction films appeared to be nearly anatomic. I also stressed the mortise and the mortise seemed to be stable with this reduction configuration. Next, all wounds were irrigated, closed with interrupted stitch followed by adrianna. Dressing applied. Short leg cast applied. The patient moved to recovery room in good condition. For further details, please refer to the medical record. Please note that Kelly did participate in the entirety of this case in capacity of first aid trainer; this included helping position the patient and helping retract and expose the appropriate bony and soft tissue area.
--- NOTE | 2017-07-19 12:59 | DSES ---
DATE OF ADMISSION: 07/12/2017 DATE OF DISCHARGE: 07/18/2017 BRIEF HISTORY AND PHYSICAL: Patient is a 57-year-old patient who slipped and fell on the ice, sustained an injury to the ankle, came to the emergency room and fracture was identified. Past medical history is significant for hypertension, diabetes type 2 on insulin, chronic obstructive pulmonary disease, kidney stones, coronary artery disease status post LAD in 2007 of the right coronary at the time as well. Last stress test to performed by Dr. Forrest showed an EF of 55% with residual effects from previous infarctions involving the basal inferior lateral, basal inferior, and basal anterior and inferior septal wall of moderate intensity. He had a CVA in 2014 with some left-sided weakness chronically. PERTINENT LABS ON ADMISSION: White count 15.2, hemoglobin 15.6, platelets 287,000, sodium 139, potassium 4.2, BUN 23, creatinine 1.0, glucose 196. PT/INR were normal. Chest x-ray showed no infiltrate. Tib/fib x-ray showed fractures in distal fibula and medial malleolus and posterior malleolus with lateral displacement and angulation. HOSPITAL COURSE: 1. The patient was admitted for right ankle fracture, underwent closed reduction and splinting in the emergency room. Dr. Vu saw the patient in consultation, performed ORIF. Patient is casted and will continue to follow with orthopedics as an outpatient. 2. Diabetes. Most of his medications were held, but his usual insulin Bydureon and Jardiance will all be restarted upon discharge. 3. Hypertension. Blood pressure remained stable on his usual medications. 4. Coronary disease remained stable on carvedilol and aspirin. DISPOSITION: The patient is stable for discharge. He should followup with ortho per their office and followup with his primary care provider next week. Diet consistent carbohydrate. Activity as tolerated. MEDICATIONS: - hydrocodone 5/325 every 6 hours as needed for pain - aspirin 81 mg daily - Lipitor 80 mg at bedtime - carvedilol 12.5 mg twice a day - Plavix 75 mg daily - Colace 100 mg daily as needed - Jardiance 25 mg every 2 days - Vasotec 5 mg twice a day - Bydureon weekly - Tricor 145 mg daily - fish oil 1000 mg daily - furosemide 40 mg every other day - Lantus 30 units at bedtime - magnesium 64 mg twice a day - nitroglycerin sublingual as needed - Protonix 40 mg daily - potassium 8 mEq daily - venlafaxine 75 mg daily DISCHARGE DIAGNOSES: 1. Right ankle fracture status post open reduction internal fixation (ORIF). 2. Diabetes mellitus type 2. 3. History of cerebrovascular accident (CVA). 4. Coronary artery disease.
== END 2017-07-18 12:40 | disposition home or self-care (01) | DRG 493 ==
LOC: M ED 07:29 → EDBD 07:29 → M ED INP 10:08 → M MSPAV 12:20 → M MS5PR 07-13 20:37
PROVIDERS: ADMIT Family Medicine; ATTEND Family Medicine
PROC: 0QSJ04Z Reposition Right Fibula with Internal Fixation Device, Open Approach (ICD-10-PCS; principal; 2017-07-13 08:30)
DX: S82.851A Displaced trimalleolar fracture of right lower leg, initial encounter for closed fracture (principal); Z68.42 Body mass index [BMI] 45.0-49.9, adult; I50.32 Chronic diastolic (congestive) heart failure; E66.01 Morbid (severe) obesity due to excess calories; E11.9 Type 2 diabetes mellitus without complications; J44.9 Chronic obstructive pulmonary disease, unspecified; Z79.4 Long term (current) use of insulin; F17.200 Nicotine dependence, unspecified, uncomplicated; Z79.899 Other long term (current) drug therapy; Z79.82 Long term (current) use of aspirin; Z86.73 Personal history of transient ischemic attack (TIA), and cerebral infarction without residual deficits; I25.10 Atherosclerotic heart disease of native coronary artery without angina pectoris; G47.33 Obstructive sleep apnea (adult) (pediatric); E78.5 Hyperlipidemia, unspecified; M19.90 Unspecified osteoarthritis, unspecified site; F32.9 Major depressive disorder, single episode, unspecified; D55.9 Anemia due to enzyme disorder, unspecified; Z87.442 Personal history of urinary calculi; W00.0XXA Fall on same level due to ice and snow, initial encounter; Y92.009 Unspecified place in unspecified non-institutional (private) residence as the place of occurrence of the external cause; I25.2 Old myocardial infarction

== ENCOUNTER → 2017-07-27 | Outpatient (REF) | payer MEDICARE ==
[2017-07-27 15:53] LABS: BASO # 0.1 10^3/uL (0.0-0.2); BASO % 0.4 % (0.0-1.0); EOS # 0.4 10^3/uL (0.0-0.50); EOS % 3.1 % (0.0-3.0); HEMATOCRIT 40.6 % (42.0-52.0); HEMOGLOBIN 13.3 g/dl (14.0-18.0); IMMATURE GRANULOCYTE % 0.3 % (0-0); LYMPH # 1.9 10^3/uL (1.5-4.5); LYMPH % 15.8 % (24.0-44.0); MEAN CORPUSCULAR HEMOGLOBIN 31.2 pg (27.0-33.0); MEAN CORPUSCULAR HGB CONC 32.8 g/dl (32.0-36.5); MEAN CORPUSCULAR VOLUME 95.3 fl (80.0-96.0); MONO # 0.6 10^3/uL (0.0-0.8); MONO % 4.9 % (0.0-5.0); NEUTROPHILS # 9.1 10^3/uL (1.8-7.7); NEUTROPHILS % 75.5 % (36.0-66.0); PLATELET COUNT, AUTOMATED 364 10^3/uL (150-450); RED BLOOD COUNT 4.26 10^6/uL (4.30-6.10); RED CELL DISTRIBUTION WIDTH 12.7 % (11.5-14.5); WHITE BLOOD COUNT 12.1 10^3/uL (4.0-10.0)
[2017-07-27 16:09] LABS: ANION GAP 7 MEQ/L (8-16); BLOOD UREA NITROGEN 12 MG/DL (7-18); CALCIUM LEVEL 8.8 MG/DL (8.5-10.1); CARBON DIOXIDE LEVEL 29 MEQ/L (21-32); CHLORIDE LEVEL 104 MEQ/L (98-107); CREATININE FOR GFR 0.88 MG/DL (0.70-1.30); GLOMERULAR FILTRATION RATE > 60.0 (>56); GLUCOSE, FASTING 134 MG/DL (70-105); POTASSIUM SERUM 4.4 MEQ/L (3.5-5.1); SODIUM LEVEL 140 MEQ/L (136-145)
== END ==
LOC: M SFHCPLAZ 11:54
DX: E11.51 Type 2 diabetes mellitus with diabetic peripheral angiopathy without gangrene (principal); S82.891D Other fracture of right lower leg, subsequent encounter for closed fracture with routine healing; X58.XXXD Exposure to other specified factors, subsequent encounter; Y92.89 Other specified places as the place of occurrence of the external cause
CPT/HCPCS: 80048

== ENCOUNTER → 2017-09-26 | Outpatient (REF) | payer MEDICARE ==
[2017-09-26 18:54] LABS: C REACTIVE PROTEIN QUANTITATIV < 0.30 MG/DL (0.00-0.30)
== END ==
LOC: M LABDRAWP 17:13
DX: S82.851D Displaced trimalleolar fracture of right lower leg, subsequent encounter for closed fracture with routine healing (principal); X58.XXXD Exposure to other specified factors, subsequent encounter; Y92.9 Unspecified place or not applicable; Y93.9 Activity, unspecified; Y99.9 Unspecified external cause status
CPT/HCPCS: 86140

== ENCOUNTER → 2018-02-16 | Outpatient (REF) | payer MEDICARE ==
[2018-02-16 12:11] LABS: HEMATOCRIT 50.5 % (42.0-52.0); HEMOGLOBIN 16.7 g/dl (13.5-17.5); MEAN CORPUSCULAR HEMOGLOBIN 31.3 pg (27.0-33.0); MEAN CORPUSCULAR HGB CONC 33.1 g/dl (32.0-36.5); MEAN CORPUSCULAR VOLUME 94.7 fl (80.0-96.0); PLATELET COUNT, AUTOMATED 277 10^3/uL (150-450); RED BLOOD COUNT 5.33 10^6/uL (4.30-6.10); RED CELL DISTRIBUTION WIDTH 13.2 % (11.5-14.5); WHITE BLOOD COUNT 11.3 10^3/uL (4.0-10.0)
[2018-02-16 12:40] LABS: ESTIMATED AVERAGE GLUCOSE 148 MG/DL (60-110); HEMOGLOBIN A1c 6.8 %
[2018-02-16 12:41] LABS: ALBUMIN 3.6 GM/DL (3.2-5.2); ALKALINE PHOSPHATASE 99 U/L (45-117); ALT/SGPT 22 U/L (12-78); ANION GAP 6 MEQ/L (8-16); AST/SGOT 12 U/L (7-37); BILIRUBIN,TOTAL 0.7 MG/DL (0.2-1.0); BLOOD UREA NITROGEN 10 MG/DL (7-18); CALCIUM LEVEL 9.3 MG/DL (8.8-10.2); CARBON DIOXIDE LEVEL 31 MEQ/L (21-32); CHLORIDE LEVEL 104 MEQ/L (98-107); CHOLESTEROL LEVEL 132 MG/DL (<200); GLOMERULAR FILTRATION RATE > 60.0 (>49); GLUCOSE, FASTING 145 MG/DL (70-100); HDL CHOLESTEROL 53 MG/DL (>40); LDL CHOLESTEROL 61.8 MG/DL (<100); NON-HDL-C 79 MG/DL; POTASSIUM SERUM 4.4 MEQ/L (3.5-5.1); PSA SCREENING 1.03 NG/ML (< 4.0); SODIUM LEVEL 141 MEQ/L (136-145); TOTAL PROTEIN 7.6 GM/DL (6.4-8.2); TRIGLYCERIDES LEVEL 86 MG/DL (<150)
[2018-02-16 12:42] LABS: CREATININE, URINE 33.4 MG/DL; MALB URINE SIEMENS < 5.0 MG/L; MAU/CREAT RATIO 14.9 MCG/MG (0.0-30.0)
== END ==
LOC: M SFHCPLAZ 10:23
DX: E11.51 Type 2 diabetes mellitus with diabetic peripheral angiopathy without gangrene (principal); E78.5 Hyperlipidemia, unspecified; J44.9 Chronic obstructive pulmonary disease, unspecified; G47.33 Obstructive sleep apnea (adult) (pediatric); Z12.5 Encounter for screening for malignant neoplasm of prostate
CPT/HCPCS: 84443

== ENCOUNTER 2018-04-05 09:07 | Emergency (ER) | payer MEDICARE ==
[2018-04-05] MEDS: NS 500 ML IV (10:11)
[2018-04-05 10:12] LABS: BASO # 0.1 10^3/uL (0.0-0.2); BASO % 0.4 % (0.0-1.0); EOS # 0.3 10^3/uL (0.0-0.50); EOS % 2.7 % (0.0-3.0); HEMATOCRIT 49.8 % (42.0-52.0); HEMOGLOBIN 16.9 g/dl (13.5-17.5); IMMATURE GRANULOCYTE % 0.4 % (0-3.0); LYMPH # 1.5 10^3/uL (1.5-4.5); LYMPH % 12.5 % (24.0-44.0); MEAN CORPUSCULAR HEMOGLOBIN 31.4 pg (27.0-33.0); MEAN CORPUSCULAR HGB CONC 33.9 g/dl (32.0-36.5); MEAN CORPUSCULAR VOLUME 92.4 fl (80.0-96.0); MONO # 0.7 10^3/uL (0.0-0.8); NEUTROPHILS # 9.1 10^3/uL (1.8-7.7); PLATELET COUNT, AUTOMATED 265 10^3/uL (150-450); RED BLOOD COUNT 5.39 10^6/uL (4.30-6.10); RED CELL DISTRIBUTION WIDTH 12.8 % (11.5-14.5); WHITE BLOOD COUNT 11.7 10^3/uL (4.0-10.0)
[2018-04-05 10:19] LABS: BEDSIDE GLUCOSE 165 MG/DL (80-115)
[2018-04-05 10:22] LABS: INR 1.04; PARTIAL THROMBOPLASTIN TIME 23.9 SECONDS (25.4-37.6); PROTHROMBIN TIME 13.7 SECONDS (12.1-14.4)
[2018-04-05 10:29] LABS: ANION GAP 8 MEQ/L (8-16); BLOOD UREA NITROGEN 14 MG/DL (7-18); CARBON DIOXIDE LEVEL 27 MEQ/L (21-32); CHLORIDE LEVEL 104 MEQ/L (98-107); CPK CREATINE PHOSPHOKINASE 505 U/L (39-308); CREATININE FOR GFR 1.03 MG/DL (0.70-1.30); GLOMERULAR FILTRATION RATE > 60.0 (>49); GLUCOSE, FASTING 157 MG/DL (70-100); MB/CK RELATIVE INDEX 0.48 (< OR =4); POTASSIUM SERUM 3.8 MEQ/L (3.5-5.1); SODIUM LEVEL 139 MEQ/L (136-145); TROPONIN I 0.02 NG/ML (< 0.10)
[2018-04-05] MEDS: ASPIRIN 81 MG CHEW TABLET PO (10:42)
[2018-04-05] MEDS: NS 1,000 ML IV (10:43)
[2018-04-05] MEDS ORDERED: MANNITOL 25% 12.5 GM/50 ML VIAL (J2150) IV (10:45)
[2018-04-05] MEDS: MANNITOL 20% IV (10:48)
== END 2018-04-05 11:11 | disposition short-term general hospital (02) ==
LOC: M ED 09:07
DX: I63.9 Cerebral infarction, unspecified (principal); E11.9 Type 2 diabetes mellitus without complications; I11.0 Hypertensive heart disease with heart failure; J44.9 Chronic obstructive pulmonary disease, unspecified; I50.9 Heart failure, unspecified; K21.9 Gastro-esophageal reflux disease without esophagitis; F42.9 Obsessive-compulsive disorder, unspecified; F20.9 Schizophrenia, unspecified; E78.5 Hyperlipidemia, unspecified; Z95.5 Presence of coronary angioplasty implant and graft; F17.210 Nicotine dependence, cigarettes, uncomplicated
CPT/HCPCS: 71045

== ENCOUNTER → 2018-05-18 | Outpatient (REF) | payer MEDICARE ==
[2018-05-18 14:05] LABS: ESTIMATED AVERAGE GLUCOSE 157 MG/DL (60-110); HEMOGLOBIN A1c 7.1 %
[2018-05-18 15:11] LABS: ALBUMIN 3.7 GM/DL (3.2-5.2); ALBUMIN/GLOBULIN RATIO 1.06 (1.00-1.93); ALKALINE PHOSPHATASE 100 U/L (45-117); ALT/SGPT 30 U/L (12-78); ANION GAP 10 MEQ/L (8-16); AST/SGOT 14 U/L (7-37); BILIRUBIN,TOTAL 0.8 MG/DL (0.2-1.0); BLOOD UREA NITROGEN 22 MG/DL (7-18); CALCIUM LEVEL 9.1 MG/DL (8.8-10.2); CARBON DIOXIDE LEVEL 27 MEQ/L (21-32); CHLORIDE LEVEL 102 MEQ/L (98-107); CREATININE FOR GFR 1.29 MG/DL (0.70-1.30); GLOMERULAR FILTRATION RATE > 60.0 (>49); GLUCOSE, FASTING 199 MG/DL (70-100); POTASSIUM SERUM 4.4 MEQ/L (3.5-5.1); SODIUM LEVEL 139 MEQ/L (136-145); TOTAL PROTEIN 7.2 GM/DL (6.4-8.2)
== END ==
LOC: M SFHCPLAZ 11:07
DX: I63.29 Cerebral infarction due to unspecified occlusion or stenosis of other precerebral arteries (principal); I11.0 Hypertensive heart disease with heart failure; E11.51 Type 2 diabetes mellitus with diabetic peripheral angiopathy without gangrene; I50.20 Unspecified systolic (congestive) heart failure
CPT/HCPCS: 80053

== ENCOUNTER 2018-05-22 10:55 | Outpatient (RCR) | payer MEDICARE | END 2018-05-23 | LOC: M OT 10:55 | DX: Z51.89 Encounter for other specified aftercare (principal); I63.9 Cerebral infarction, unspecified | CPT/HCPCS: 97165 ==

== ENCOUNTER → 2018-05-22 | Outpatient (REF) | payer MEDICARE ==
[2018-05-22 15:25] LABS: CREATININE, URINE 60.4 MG/DL; MALB URINE SIEMENS 16.8 MG/L
[2018-05-22 15:29] LABS: MAU/CREAT RATIO 27.8 MCG/MG (0.0-30.0)
== END ==
LOC: M SFHCPLAZ 14:43
DX: I63.29 Cerebral infarction due to unspecified occlusion or stenosis of other precerebral arteries (principal); E11.51 Type 2 diabetes mellitus with diabetic peripheral angiopathy without gangrene
CPT/HCPCS: 82043

== ENCOUNTER 2018-05-28 11:03 | Outpatient (RCR) | payer MEDICARE | END 2018-06-22 | LOC: M PT 05-30 10:48 → M OT 11:03 | DX: Z86.73 Personal history of transient ischemic attack (TIA), and cerebral infarction without residual deficits (principal) | CPT/HCPCS: 97110 ==

== ENCOUNTER 2018-07-11 09:55 | Outpatient (RCR) | payer MEDICARE ==
[~2018-07-11 09:55] MED LIST changes: -AMIL5TA PO; +AMIL5TAB4 PO; +CLOP75TA2 PO; -DOCQ100C PO; +DOCQ100C5 PO; +DOXY100C37 PO; -DRIS50002 PO; +DRIS50003 PO; -EFFE150C PO; +EFFE150C2 PO; +FLOM0.4C39 PO; -FLOM5CAP PO; +IPRA0.00 INH; -IPRASOL4 INH; +JARD1TAB3 PO; -LASI40TA PO; +LASI40TA9 PO; -PANT40TA2 PO; +PANT40TA3 PO; +VENL75CA47 PO
== END 2018-07-23 ==
LOC: M PT 09:55
PROVIDERS: ATTEND Nurse Practitioner Family
DX: I63.9 Cerebral infarction, unspecified (principal)
CPT/HCPCS: 97110; G8978; G8979

== ENCOUNTER 2018-08-09 10:29 | Outpatient (RCR) | payer MEDICARE | END 2018-08-23 | LOC: M PT 10:29 | PROVIDERS: ATTEND Nurse Practitioner Family | DX: I63.9 Cerebral infarction, unspecified (principal) ==

== ENCOUNTER → 2018-09-20 | Outpatient (REF) | payer MEDICARE ==
[2018-09-20 13:47] LABS: HEMOGLOBIN A1c 9.4 %
[2018-09-20 14:16] LABS: ALBUMIN 3.7 GM/DL (3.2-5.2); BILIRUBIN,TOTAL 0.5 MG/DL (0.2-1.0); CALCIUM LEVEL 8.8 MG/DL (8.8-10.2); CREATININE FOR GFR 1.3 MG/DL (0.70-1.30); GLOMERULAR FILTRATION RATE 59.9 (>49); POTASSIUM SERUM 4.5 MEQ/L (3.5-5.1); TOTAL PROTEIN 6.8 GM/DL (6.4-8.2)
== END ==
LOC: M SFHCPLAZ 11:07
PROVIDERS: ATTEND Nurse Practitioner Family
DX: E11.51 Type 2 diabetes mellitus with diabetic peripheral angiopathy without gangrene (principal)
CPT/HCPCS: 36415; 80053; 83036; G0463

== ENCOUNTER → 2018-10-19 | Outpatient (CLI) | payer MEDICARE ==
--- NOTE | 2018-10-19 09:45 | REP ---
Noncontrast low-dose screening lung cancer CT study: History: Former smoker. Comparison chest x-ray April 05, 2018. There is also a comparison chest x-ray from May 27, 2016. Findings: Pulmonary prom burn off operator radiograph demonstrates a mildly prominent heart and a loop recorder in the precordial soft tissues. There is a diffuse pattern of predominately peripheral interstitial fibrosis in the lung bases most pronounced in the lingula and right middle lobe but also to some degree in the upper lobes and lower lobes. There is no evidence of significant pulmonary nodule or mass lesion. There is some vascular calcification. There is evidence of cholelithiasis. Impression: Lung RADS category II benign findings. Repeat screening study recommended 1 year. Findings include chronic interstitial pulmonary fibrosis, vascular calcification, and cholelithiasis. Electronically Signed by Ian Oh MD 10/19/2018 02:29 P
== END ==
LOC: M RAD 08:34
PROVIDERS: ATTEND Nurse Practitioner Family
DX: Z12.2 Encounter for screening for malignant neoplasm of respiratory organs (principal); Z87.891 Personal history of nicotine dependence; J84.10 Pulmonary fibrosis, unspecified

== ENCOUNTER → 2019-03-01 | Outpatient (REF) | payer MEDICARE ==
[~2019-03-01] MED LIST changes: -/PANT40TA OR; +PROT1TAB2 OR
[2019-03-01 10:05] LABS: HEMATOCRIT 50.5 % (42.0-52.0); HEMOGLOBIN 16.5 g/dl (13.5-17.5); MEAN CORPUSCULAR HEMOGLOBIN 31.1 pg (27.0-33.0); MEAN CORPUSCULAR HGB CONC 32.7 g/dl (32.0-36.5); MEAN CORPUSCULAR VOLUME 95.1 fl (80.0-96.0); PLATELET COUNT, AUTOMATED 259 10^3/uL (150-450); RED BLOOD COUNT 5.31 10^6/uL (4.30-6.10); WHITE BLOOD COUNT 10.5 10^3/uL (4.0-10.0)
[2019-03-01 10:30] LABS: ALBUMIN 3.8 GM/DL (3.2-5.2); ALT/SGPT 38 U/L (12-78); BILIRUBIN,TOTAL 0.6 MG/DL (0.2-1.0); BLOOD UREA NITROGEN 17 MG/DL (7-18); CALCIUM LEVEL 9.6 MG/DL (8.8-10.2); CARBON DIOXIDE LEVEL 29 MEQ/L (21-32); CHLORIDE LEVEL 104 MEQ/L (98-107); CHOLESTEROL LEVEL 127 MG/DL (<200); CHOLESTEROL RISK RATIO 2.591 (<5); CREATININE FOR GFR 1.22 MG/DL (0.70-1.30); GLOMERULAR FILTRATION RATE > 60.0 (>49); GLUCOSE, FASTING 294 MG/DL (70-100); HDL CHOLESTEROL 49 MG/DL (>40); LDL CHOLESTEROL 52 MG/DL (<100); NON-HDL-C 78 MG/DL; POTASSIUM SERUM 4.8 MEQ/L (3.5-5.1); SODIUM LEVEL 141 MEQ/L (136-145); TOTAL PROTEIN 7.2 GM/DL (6.4-8.2); TRIGLYCERIDES LEVEL 128 MG/DL (<150)
[2019-03-01 13:29] LABS: VITAMIN B12 LEVEL 532 PG/ML (247-911)
== END ==
LOC: M SFHCPLAZ 08:36
PROVIDERS: ATTEND Nurse Practitioner Family
DX: I25.10 Atherosclerotic heart disease of native coronary artery without angina pectoris (principal); E11.51 Type 2 diabetes mellitus with diabetic peripheral angiopathy without gangrene; G63 Polyneuropathy in diseases classified elsewhere; E78.5 Hyperlipidemia, unspecified

== ENCOUNTER → 2019-07-29 | Outpatient (CLI) | payer OTHER ==
[2019-07-29 11:21] LABS: ALBUMIN 3.7 GM/DL (3.2-5.2); BILIRUBIN,TOTAL 0.5 MG/DL (0.2-1.0); CALCIUM LEVEL 9.1 MG/DL (8.8-10.2); CHOLESTEROL RISK RATIO 2.441 (<5); CREATININE FOR GFR 1.3 MG/DL (0.70-1.30); GLOMERULAR FILTRATION RATE 59.7 (>49); POTASSIUM SERUM 4.5 MEQ/L (3.5-5.1); TOTAL PROTEIN 6.9 GM/DL (6.4-8.2)
[2019-07-29 11:35] LABS: HEMOGLOBIN A1c 7.9 %
== END ==
LOC: M LAB 09:57
PROVIDERS: ATTEND Nurse Practitioner Family
DX: E11.51 Type 2 diabetes mellitus with diabetic peripheral angiopathy without gangrene (principal); E78.5 Hyperlipidemia, unspecified

== ENCOUNTER → 2020-04-08 | Outpatient (CLI) | payer OTHER ==
[~2020-04-08] MED LIST changes: -ASPI81TA85 PO; +ASPI81TA86 PO; +COLA100C5 PO; +LISI10TA4 PO; +PANT40TA29 PO; -PANT40TA3 PO; +TRES1INJ2 SC; +TRUL0.5I SC
== END ==
LOC: M LABSMTC 10:44
PROVIDERS: ATTEND Anesthesiology
DX: Z01.812 Encounter for preprocedural laboratory examination (principal); Z20.828 Contact with and (suspected) exposure to other viral communicable diseases
CPT/HCPCS: C9803; U0003

== ENCOUNTER 2020-04-13 11:42 | Day surgery (SDC) | payer OTHER ==
[~2020-04-13] VITALS: Ht 172.7 cm; Wt 140.6 kg
[~2020-04-13 11:42] MED LIST changes: +LIDOCAINE 2% 100MG/5ML SDV (FOR ANES.) As Ordered ONE; +NS 1,000 ML IV ONE; +propofoL 200 MG/20 ML VIAL As Ordered ONE
[2020-04-13] MEDS ORDERED: fentaNYL 100 MCG/2 ML INJECTION (J3010) As Ordered ONE (12:55)
[2020-04-13] MEDS ORDERED: ePHEDrine SULFATE 25 MG/5 ML(5MG/ML) SYRINGE As Ordered ONE (13:31)
--- NOTE | 2020-04-13 13:32 | ROOR ---
Patient Name: Vinnie Jones Procedure Date: 04/13/2020 1:15 PM Date of : 1960 Age: 60 Room: [facility] Gender: Male Note Status: Finalized Procedure: Upper GI endoscopy Indications: Surveillance for malignancy due to personal history of Gutierrez's esophagus Providers: Bakari YOUNG MD Referring MD: Vivek Charles MD Requesting Provider: Medicines: Monitored Anesthesia Care Complications: No immediate complications. Procedure: Pre-Anesthesia Assessment: - The heart rate, respiratory rate, oxygen saturations, blood pressure, adequacy of pulmonary ventilation, and response to care were monitored throughout the procedure. The Endoscope was introduced through the mouth, and advanced to the second part of duodenum. The upper GI endoscopy was accomplished without difficulty. The patient tolerated the procedure well. Findings: The Z-line was variable and was found 40 to 41 cm from the incisors. This was biopsied with a cold forceps for histology. The exam was otherwise without abnormality. Impression: - Z-line variable, 40 to 41 cm from the incisors. Biopsied. - The examination was otherwise normal. Recommendation: - Repeat upper endoscopy at appointment to be scheduled for surveillance. - Telephone endoscopist for pathology results in 2 weeks. Bakari Young MD Bakari YOUNG MD 04/13/2020 1:32:03 PM Electronically signed by Bakari YOUNG MD Number of Addenda: 0 Note Initiated On: 04/13/2020 1:15 PM Estimated Blood Loss: Estimated blood loss: none.
[2020-04-13] MEDS ORDERED: propofoL 200 MG/20 ML VIAL As Ordered ONE ×2 (13:54→14:32)
[2020-04-13] MEDS ORDERED: PHENYLephrine HCL 500 MCG/5 ML (100MCG/ML) SYRINGE (J2370) As Ordered ONE (14:05)
--- NOTE | 2020-04-13 14:10 | ROOR ---
Patient Name: Vinnie Jones Procedure Date: 04/13/2020 1:15 PM Date of : 1960 Age: 60 Room: [facility] Gender: Male Note Status: Finalized Procedure: Colonoscopy Indications: High risk colon cancer surveillance: Personal history of colonic polyps Providers: Bakari BRODERICK MD Referring MD: Vivek Charles MD Requesting Provider: Medicines: Monitored Anesthesia Care Complications: No immediate complications. Procedure: Pre-Anesthesia Assessment: - The heart rate, respiratory rate, oxygen saturations, blood pressure, adequacy of pulmonary ventilation, and response to care were monitored throughout the procedure. The Colonoscope was introduced through the anus and advanced to the terminal ileum, with identification of the appendiceal orifice and IC valve. The colonoscopy was performed without difficulty. The patient tolerated the procedure well. The quality of the bowel preparation was fair and unsatisfactory. Findings: The perianal and digital rectal examinations were normal. Six sessile and semi-sessile polyps were found in the sigmoid colon, splenic flexure and hepatic flexure. The polyps were 5 to 7 mm in size. These polyps were removed with a cold snare. Resection and retrieval were complete. To prevent bleeding after the polypectomy, seven hemostatic clips were successfully placed. There was no bleeding at the end of the procedure. The exam was otherwise without abnormality. Impression: - (EXAM: Complete, PREP: Suboptimal) - Six 5 to 7 mm polyps in the sigmoid colon, at the splenic flexure and at the hepatic flexure, removed with a cold snare. Resected and retrieved. Clips were placed. - The examination was otherwise normal. Recommendation: - Repeat colonoscopy in 1 year because the bowel preparation was suboptimal. - (Rec alternate colon preparation for next colonoscopy) - Resume Plavix (clopidogrel) at prior dose tomorrow. Bakari Broderick MD Bakari BRODERICK MD 04/13/2020 2:10:25 PM Electronically signed by Bakari BRODERICK MD Number of Addenda: 0 Note Initiated On: 04/13/2020 1:15 PM Estimated Blood Loss: Estimated blood loss: none.
[2020-04-13 14:48] VITALS: BP 113/64
== END 2020-04-13 14:49 | disposition home or self-care (01) ==
LOC: M OPP 11:42
PROVIDERS: ATTEND Internal Medicine Gastroenterology
DX: Z86.010 Personal history of colon polyps (principal); Z09 Encounter for follow-up examination after completed treatment for conditions other than malignant neoplasm; D12.0 Benign neoplasm of cecum; D12.2 Benign neoplasm of ascending colon; D12.5 Benign neoplasm of sigmoid colon; J44.9 Chronic obstructive pulmonary disease, unspecified; E11.9 Type 2 diabetes mellitus without complications; G47.30 Sleep apnea, unspecified; Z79.82 Long term (current) use of aspirin; Z79.4 Long term (current) use of insulin; Z79.899 Other long term (current) drug therapy; Z87.891 Personal history of nicotine dependence; Z95.5 Presence of coronary angioplasty implant and graft
CPT/HCPCS: 43239; 45385; 88305; J2370; J3010

== ENCOUNTER → 2020-06-15 | Outpatient (REF) | payer MEDICARE, MEDICAID ==
[~2020-06-15] MED LIST changes: -LIDOCAINE 2% 100MG/5ML SDV (FOR ANES.) As Ordered ONE; -NS 1,000 ML IV ONE; -propofoL 200 MG/20 ML VIAL As Ordered ONE
[2020-06-15 13:32] LABS: BASO % 0.3 % (0.0-1.0); EOS # 0.3 10^3/uL (0.0-0.5); EOS % 2.5 % (0.0-3.0); HEMATOCRIT 46.2 % (42.0-52.0); HEMOGLOBIN 14.9 g/dl (13.5-17.5); LYMPH # 1.5 10^3/uL (1.5-5.0); MEAN CORPUSCULAR HEMOGLOBIN 30.5 pg (27.0-33.0); MEAN CORPUSCULAR HGB CONC 32.3 g/dl (32.0-36.5); MEAN CORPUSCULAR VOLUME 94.7 fl (80.0-96.0); MONO # 0.6 10^3/uL (0.0-0.8); MONO % 4.9 % (0.0-5.0); NEUTROPHILS # 8.8 10^3/uL (1.5-8.5); NEUTROPHILS % 78.9 % (36.0-66.0); PLATELET COUNT, AUTOMATED 245 10^3/uL (150-450); RED BLOOD COUNT 4.88 10^6/uL (4.30-6.10); WHITE BLOOD COUNT 11.1 10^3/uL (4.0-10.0)
[2020-06-15 13:56] LABS: HEMOGLOBIN A1c 8.8 %
[2020-06-15 15:14] LABS: ALBUMIN 3.5 GM/DL (3.2-5.2); ALT/SGPT 30 U/L (12-78); BILIRUBIN,TOTAL 0.5 MG/DL (0.2-1.0); BLOOD UREA NITROGEN 16 MG/DL (7-18); CALCIUM LEVEL 9.1 MG/DL (8.8-10.2); CARBON DIOXIDE LEVEL 27 MEQ/L (21-32); CHLORIDE LEVEL 104 MEQ/L (98-107); CHOLESTEROL LEVEL 129 MG/DL (<200); CHOLESTEROL RISK RATIO 2.632 (<5); CREATININE FOR GFR 1.18 MG/DL (0.70-1.30); GLOMERULAR FILTRATION RATE > 60.0 (>49); GLUCOSE, FASTING 289 MG/DL (70-100); HDL CHOLESTEROL 49 MG/DL (>40); LDL CHOLESTEROL 59 MG/DL (<100); MAGNESIUM LEVEL 2.1 MG/DL (1.8-2.4); NON-HDL-C 80 MG/DL; POTASSIUM SERUM 4.3 MEQ/L (3.5-5.1); SODIUM LEVEL 138 MEQ/L (136-145); TOTAL PROTEIN 6.8 GM/DL (6.4-8.2); TRIGLYCERIDES LEVEL 107 MG/DL (<150)
[2020-06-15 15:18] LABS: CREATININE, URINE 16.7 MG/DL; MALB URINE SIEMENS < 5.0 MG/L; MAU/CREAT RATIO 29.9 MCG/MG (0.0-30.0)
== END ==
LOC: M SFHCPLAZ 09:31
PROVIDERS: ATTEND Nurse Practitioner Family
DX: E11.42 Type 2 diabetes mellitus with diabetic polyneuropathy (principal); E78.5 Hyperlipidemia, unspecified; I11.0 Hypertensive heart disease with heart failure
CPT/HCPCS: 36415; 80053; 80061; 82043; 83036; 83735; 84439; 84443; 85025; G0463

== ENCOUNTER → 2020-12-14 | Outpatient (REF) | payer MEDICARE, MEDICAID ==
[~2020-12-14] MED LIST changes: -DOXY100C37 PO; +DOXY1CAP62 PO; +LISI10TA22 PO; -LISI10TA4 PO
[2020-12-14 13:46] LABS: CREATININE, URINE 82.9 MG/DL; MALB URINE SIEMENS 5.2 MG/L; MAU/CREAT RATIO 6.2 MCG/MG (0.0-30.0)
[2020-12-14 13:53] LABS: ALBUMIN 3.4 GM/DL (3.2-5.2); ALT/SGPT 29 U/L (12-78); BILIRUBIN,TOTAL 0.7 MG/DL (0.2-1.0); BLOOD UREA NITROGEN 23 MG/DL (7-18); CARBON DIOXIDE LEVEL 25 MEQ/L (21-32); CHLORIDE LEVEL 106 MEQ/L (98-107); CHOLESTEROL LEVEL 114 MG/DL (<200); CHOLESTEROL RISK RATIO 2.072 (<5); CREATININE FOR GFR 1.05 MG/DL (0.70-1.30); FREE T4 1.04 NG/DL (0.76-1.46); GLOMERULAR FILTRATION RATE > 60.0 (>49); GLUCOSE, FASTING 144 MG/DL (70-100); HDL CHOLESTEROL 55 MG/DL (>40); LDL CHOLESTEROL 44 MG/DL (<100); NON-HDL-C 59 MG/DL; POTASSIUM SERUM 4.2 MEQ/L (3.5-5.1); SODIUM LEVEL 139 MEQ/L (136-145); TOTAL PROTEIN 6.8 GM/DL (6.4-8.2); TRIGLYCERIDES LEVEL 73 MG/DL (<150)
[2020-12-14 14:20] LABS: HEMOGLOBIN A1c 7.8 %
== END ==
LOC: M SFHCPLAZ 11:32
PROVIDERS: ATTEND Nurse Practitioner Family
DX: E11.42 Type 2 diabetes mellitus with diabetic polyneuropathy (principal); E78.5 Hyperlipidemia, unspecified
CPT/HCPCS: 36415; 80053; 80061; 82043; 83036; 84439; 84443; G0463

== ENCOUNTER → 2021-06-24 | Outpatient (CLI) | payer MEDICARE, MEDICAID ==
[~2021-06-24] MED LIST changes: +DOXY-443 PO; -DOXY1CAP62 PO
[2021-06-24 13:37] LABS: BASO % 0.3 % (0.0-1.0); EOS # 0.3 10^3/uL (0.0-0.5); EOS % 2.5 % (0.0-3.0); HEMATOCRIT 47.2 % (42.0-52.0); HEMOGLOBIN 15.5 g/dl (13.5-17.5); LYMPH # 1.6 10^3/uL (1.5-5.0); LYMPH % 13.4 % (24.0-44.0); MEAN CORPUSCULAR HEMOGLOBIN 31.1 pg (27.0-33.0); MEAN CORPUSCULAR HGB CONC 32.8 g/dl (32.0-36.5); MEAN CORPUSCULAR VOLUME 94.6 fl (80.0-96.0); MONO # 0.7 10^3/uL (0.0-0.8); MONO % 5.6 % (2.0-8.0); NEUTROPHILS # 9.1 10^3/uL (1.5-8.5); NEUTROPHILS % 77.6 % (36.0-66.0); PLATELET COUNT, AUTOMATED 224 10^3/uL (150-450); RED BLOOD COUNT 4.99 10^6/uL (4.30-6.10); WHITE BLOOD COUNT 11.7 10^3/uL (4.0-10.0)
[2021-06-24 13:52] LABS: HEMOGLOBIN A1c 11.7 %
[2021-06-24 14:15] LABS: ALBUMIN 3.3 GM/DL (3.2-5.2); ALT/SGPT 40 U/L (12-78); BILIRUBIN,TOTAL 0.6 MG/DL (0.2-1.0); BLOOD UREA NITROGEN 17 MG/DL (7-18); CALCIUM LEVEL 9.1 MG/DL (8.8-10.2); CARBON DIOXIDE LEVEL 26 MEQ/L (21-32); CHLORIDE LEVEL 102 MEQ/L (98-107); CHOLESTEROL LEVEL 145 MG/DL (<200); FREE T4 1.09 NG/DL (0.76-1.46); GLOMERULAR FILTRATION RATE > 60.0 (>49); GLUCOSE, FASTING 371 MG/DL (70-100); HDL CHOLESTEROL 48 MG/DL (>40); LDL CHOLESTEROL 75 MG/DL (<100); NON-HDL-C 97 MG/DL; POTASSIUM SERUM 4.6 MEQ/L (3.5-5.1); SODIUM LEVEL 136 MEQ/L (136-145); TOTAL PROTEIN 6.5 GM/DL (6.4-8.2); TRIGLYCERIDES LEVEL 111 MG/DL (<150)
[2021-06-24 14:24] LABS: CREATININE, URINE 43.3 MG/DL; MALB URINE SIEMENS < 5.0 MG/L; MAU/CREAT RATIO 11.5 MCG/MG (0.0-30.0)
== END ==
LOC: M PLALAB 09:07
PROVIDERS: ATTEND Nurse Practitioner Family
DX: E11.42 Type 2 diabetes mellitus with diabetic polyneuropathy (principal); E78.5 Hyperlipidemia, unspecified; I48.0 Paroxysmal atrial fibrillation

== ENCOUNTER → 2021-12-13 | Outpatient (CLI) | payer MEDICARE, MEDICAID, OTHER ==
[~2021-12-13] MED LIST changes: +ACET-897 PO; +ALBU2.5V10 INH; -ALBU83IN INH; +D3 S1CAP3 PO; +ELIQ5TAB PO; +SITA50TAB PO; +VITA500C19 PO
[2021-12-13 13:54] LABS: BASO # 0.1 10^3/uL (0.0-0.2); BASO % 0.5 % (0.0-1.0); EOS # 0.3 10^3/uL (0.0-0.5); EOS % 2.4 % (0.0-3.0); HEMATOCRIT 49.5 % (42.0-52.0); HEMOGLOBIN 16.5 g/dl (13.5-17.5); LYMPH # 2.2 10^3/uL (1.5-5.0); LYMPH % 16.1 % (24.0-44.0); MEAN CORPUSCULAR HEMOGLOBIN 31.1 pg (27.0-33.0); MEAN CORPUSCULAR HGB CONC 33.3 g/dl (32.0-36.5); MEAN CORPUSCULAR VOLUME 93.4 fl (80.0-96.0); MONO # 0.8 10^3/uL (0.0-0.8); NEUTROPHILS # 10.1 10^3/uL (1.5-8.5); NEUTROPHILS % 74.1 % (36.0-66.0); PLATELET COUNT, AUTOMATED 293 10^3/uL (150-450); WHITE BLOOD COUNT 13.6 10^3/uL (4.0-10.0)
[2021-12-13 14:21] LABS: HEMOGLOBIN A1c 10.9 %
[2021-12-13 14:31] LABS: ALBUMIN 3.9 GM/DL (3.2-5.2); ALT/SGPT 42 U/L (12-78); BILIRUBIN,TOTAL 0.9 MG/DL (0.2-1.0); BLOOD UREA NITROGEN 19 MG/DL (7-18); CARBON DIOXIDE LEVEL 27 MEQ/L (21-32); CHLORIDE LEVEL 100 MEQ/L (98-107); CHOLESTEROL LEVEL 149 MG/DL (<200); CHOLESTEROL RISK RATIO 3.465 (<5); CREATININE FOR GFR 1.24 MG/DL (0.70-1.30); FREE T4 1.16 NG/DL (0.76-1.46); GLOMERULAR FILTRATION RATE > 60.0 (>49); GLUCOSE, FASTING 247 MG/DL (70-100); HDL CHOLESTEROL 43 MG/DL (>40); LDL CHOLESTEROL 77 MG/DL (<100); NON-HDL-C 106 MG/DL; POTASSIUM SERUM 4.4 MEQ/L (3.5-5.1); SODIUM LEVEL 136 MEQ/L (136-145); TOTAL PROTEIN 7.5 GM/DL (6.4-8.2); TRIGLYCERIDES LEVEL 147 MG/DL (<150)
[2021-12-13 14:49] LABS: CREATININE, URINE 18.5 MG/DL; MALB URINE SIEMENS < 5.0 MG/L
== END ==
LOC: M PLALAB 10:49
PROVIDERS: ATTEND Nurse Practitioner Family
DX: E11.42 Type 2 diabetes mellitus with diabetic polyneuropathy (principal); E78.5 Hyperlipidemia, unspecified; I48.0 Paroxysmal atrial fibrillation; Z12.5 Encounter for screening for malignant neoplasm of prostate

== ENCOUNTER → 2022-01-06 | Outpatient (CLI) | payer MEDICARE, MEDICAID | LOC: M LABSMTC 09:15 | PROVIDERS: ATTEND Anesthesiology | DX: Z01.818 Encounter for other preprocedural examination (principal); Z11.52 Encounter for screening for COVID-19 ==

== ENCOUNTER → 2022-02-09 | Outpatient (CLI) | payer MEDICARE, MEDICAID, OTHER | LOC: M LABSMTC 08:59 | PROVIDERS: ATTEND Anesthesiology | DX: Z01.818 Encounter for other preprocedural examination (principal); Z11.52 Encounter for screening for COVID-19 ==

== ENCOUNTER 2022-02-14 07:39 | Day surgery (SDC) | payer MEDICARE, MEDICAID, OTHER ==
[~2022-02-14] VITALS: Ht 172.7 cm; Wt 130.2 kg
[~2022-02-14 07:39] MED LIST changes: +NS 1,000 ML IV ONE
[2022-02-14] MEDS ORDERED: GLYCOPYRROLATE INJ 0.2 MG/ML 2 ML VIAL As Ordered ONE (09:22)
[2022-02-14] MEDS ORDERED: propofoL 200 MG/20 ML VIAL As Ordered ONE (09:22)
[2022-02-14] MEDS ORDERED: LIDOCAINE 2% 100MG/5ML SDV (FOR ANES.) As Ordered ONE (09:23)
[2022-02-14 10:13] VITALS: BP 112/66
== END 2022-02-14 10:15 | disposition home or self-care (01) ==
LOC: M OPP 07:39
PROVIDERS: ATTEND Internal Medicine Gastroenterology
DX: Z86.010 Personal history of colon polyps (principal); Z80.0 Family history of malignant neoplasm of digestive organs; K63.5 Polyp of colon; K51.40 Inflammatory polyps of colon without complications; E11.9 Type 2 diabetes mellitus without complications; G47.30 Sleep apnea, unspecified; I25.2 Old myocardial infarction; I50.9 Heart failure, unspecified; I48.91 Unspecified atrial fibrillation; Z79.01 Long term (current) use of anticoagulants; Z79.02 Long term (current) use of antithrombotics/antiplatelets; Z79.1 Long term (current) use of non-steroidal anti-inflammatories (NSAID); Z79.4 Long term (current) use of insulin; Z79.51 Long term (current) use of inhaled steroids; Z79.899 Other long term (current) drug therapy; Z99.89 Dependence on other enabling machines and devices; Z86.73 Personal history of transient ischemic attack (TIA), and cerebral infarction without residual deficits; Z95.5 Presence of coronary angioplasty implant and graft

== ENCOUNTER → 2022-02-25 | Outpatient (CLI) | payer MEDICARE, MEDICAID, OTHER ==
[~2022-02-25] MED LIST changes: -NS 1,000 ML IV ONE
== END ==
LOC: M PLARAD 09:31
PROVIDERS: ATTEND Psychiatry & Neurology Neurology
DX: G20 Parkinson's disease (principal); G25.0 Essential tremor; I63.9 Cerebral infarction, unspecified

== ENCOUNTER → 2022-05-13 | Outpatient (CLI) | payer MEDICAID, MEDICARE ==
[2022-05-13 10:14] LABS: BASO # 0.1 10^3/uL (0.0-0.2); BASO % 0.6 % (0.0-1.0); EOS # 0.3 10^3/uL (0.0-0.5); EOS % 2.6 % (0.0-3.0); HEMATOCRIT 48.3 % (42.0-52.0); HEMOGLOBIN 15.6 g/dl (13.5-17.5); LYMPH # 1.2 10^3/uL (1.5-5.0); LYMPH % 10.6 % (24.0-44.0); MEAN CORPUSCULAR HEMOGLOBIN 30.6 pg (27.0-33.0); MEAN CORPUSCULAR HGB CONC 32.3 g/dl (32.0-36.5); MEAN CORPUSCULAR VOLUME 94.7 fl (80.0-96.0); MONO # 0.7 10^3/uL (0.0-0.8); MONO % 6.2 % (2.0-8.0); NEUTROPHILS # 9.3 10^3/uL (1.5-8.5); NEUTROPHILS % 79.5 % (36.0-66.0); PLATELET COUNT, AUTOMATED 234 10^3/uL (150-450); WHITE BLOOD COUNT 11.7 10^3/uL (4.0-10.0)
[2022-05-13 10:33] LABS: HEMOGLOBIN A1c 9.3 %
[2022-05-13 11:01] LABS: CREATININE, URINE 48.8 MG/DL; MAU/CREAT RATIO 12.2 MCG/MG (0.0-30.0)
[2022-05-13 11:05] LABS: ALBUMIN 3.6 GM/DL (3.2-5.2); ALT/SGPT 22 U/L (12-78); BILIRUBIN,TOTAL 0.7 MG/DL (0.2-1.0); BLOOD UREA NITROGEN 27 MG/DL (7-18); CALCIUM LEVEL 9.5 MG/DL (8.8-10.2); CARBON DIOXIDE LEVEL 26 MEQ/L (21-32); CHLORIDE LEVEL 102 MEQ/L (98-107); CHOLESTEROL LEVEL 131 MG/DL (<200); CREATININE FOR GFR 1.18 MG/DL (0.70-1.30); FREE T4 0.98 NG/DL (0.76-1.46); GLOMERULAR FILTRATION RATE > 60.0 (>49); GLUCOSE, FASTING 224 MG/DL (70-100); HDL CHOLESTEROL 59 MG/DL (>40); LDL CHOLESTEROL 54 MG/DL (<100); NON-HDL-C 72 MG/DL; POTASSIUM SERUM 4.5 MEQ/L (3.5-5.1); SODIUM LEVEL 136 MEQ/L (136-145); TOTAL PROTEIN 7.5 GM/DL (6.4-8.2); TRIGLYCERIDES LEVEL 92 MG/DL (<150)
== END ==
LOC: M PLALAB 07:47
PROVIDERS: ATTEND Nurse Practitioner Family
DX: E11.42 Type 2 diabetes mellitus with diabetic polyneuropathy (principal); E78.5 Hyperlipidemia, unspecified; I10 Essential (primary) hypertension

== ENCOUNTER → 2023-01-09 | Outpatient (CLI) | payer MEDICARE, MEDICAID ==
[~2023-01-09] MED LIST changes: +CLOP75TA99 PO; -PLAV1TAB2 PO
[2023-01-09 11:09] LABS: BASO # 0.1 10^3/uL (0.0-0.2); BASO % 0.6 % (0.0-1.0); EOS # 0.4 10^3/uL (0.0-0.5); EOS % 3.2 % (0.0-3.0); HEMATOCRIT 48.6 % (42.0-52.0); HEMOGLOBIN 15.9 g/dl (13.5-17.5); LYMPH # 1.6 10^3/uL (1.5-5.0); LYMPH % 14.3 % (24.0-44.0); MEAN CORPUSCULAR HGB CONC 32.7 g/dl (32.0-36.5); MEAN CORPUSCULAR VOLUME 94.7 fl (80.0-96.0); MONO # 0.6 10^3/uL (0.0-0.8); MONO % 5.3 % (2.0-8.0); NEUTROPHILS # 8.8 10^3/uL (1.5-8.5); NEUTROPHILS % 76.1 % (36.0-66.0); PLATELET COUNT, AUTOMATED 250 10^3/uL (150-450); RED BLOOD COUNT 5.13 10^6/uL (4.30-6.10); WHITE BLOOD COUNT 11.5 10^3/uL (4.0-10.0)
[2023-01-09 11:43] LABS: CREATININE, URINE 69.5 MG/DL; MAU/CREAT RATIO 7.1 MCG/MG (0.0-30.0)
[2023-01-09 11:45] LABS: THYROID STIMULATING HORMONE 1.804 uIU/ML (0.55-4.78)
[2023-01-09 11:49] LABS: ALBUMIN 3.4 G/DL (3.2-5.2); ALKALINE PHOSPHATASE 86 U/L (46-116); ALT/SGPT 29 U/L (7.0-40); AST/SGOT 12 U/L (<34); BILIRUBIN,TOTAL 0.8 MG/DL (0.3-1.2); BLOOD UREA NITROGEN 16 MG/DL (9-23); CALCIUM LEVEL 8.8 MG/DL (8.3-10.6); CARBON DIOXIDE LEVEL 26 MMOL/L (20-31); CHLORIDE LEVEL 103 MMOL/L (98-107); CHOLESTEROL LEVEL 130 MG/DL (<200); CHOLESTEROL RISK RATIO 3.29 (<5); CREATININE FOR GFR 0.98 MG/DL (0.70-1.30); GLOMERULAR FILTRATION RATE > 60.0 (>49); GLUCOSE, FASTING 185 MG/DL (74-106); HDL CHOLESTEROL 39.5 MG/DL (>40); LDL CHOLESTEROL 64.3 MG/DL (<100); NON-HDL-C 90.5 MG/DL; POTASSIUM SERUM 4.1 MMOL/L (3.5-5.1); SODIUM LEVEL 139 MMOL/L (136-145); TOTAL PROTEIN 6.4 G/DL (5.7-8.2); TRIGLYCERIDES LEVEL 131 MG/DL (<150)
[2023-01-09 12:07] LABS: HEMOGLOBIN A1c 10.7 % (4.0-6.0)
== END ==
LOC: M PLALAB 08:17
PROVIDERS: ATTEND Nurse Practitioner Family
DX: E11.42 Type 2 diabetes mellitus with diabetic polyneuropathy (principal); E78.5 Hyperlipidemia, unspecified; I10 Essential (primary) hypertension

== ENCOUNTER 2023-04-25 10:42 | Emergency (ER) | payer MEDICARE, MEDICAID ==
[~2023-04-25] VITALS: Ht 172.7 cm; Wt 137.3 kg
[~2023-04-25 10:42] MED LIST changes: +FINA-48 PO; -PROS5TAB PO
[2023-04-25 15:19] VITALS: BP 131/76; TEMP 97.9; O2SAT 96
[2023-04-25] MEDS ORDERED: ALBU8.5H (15:28)
[2023-04-25] MEDS ORDERED: BOOSTRIX VACCINE (TETANUS/DIPHTH/ACEL. PERTUSSIS) 0.5ML SYR IM ONE (15:40)
[2023-04-25] MEDS ORDERED: LIDOCAINE 1% MDV 20ML VIAL SC ONE (15:40)
[2023-04-25] MEDS ORDERED: NEOSPORIN OINT 0.9 GM PKT TOP ONE (15:40)
[2023-04-25] MEDS ORDERED: CEPHALEXIN 500 MG CAP PO ONE (15:40)
[2023-04-25] MEDS ORDERED: CEPH500C PO (16:09)
[2023-04-25] MEDS ORDERED: BACI500O8 TOP (16:09)
== END 2023-04-25 16:15 | disposition home or self-care (01) ==
LOC: M ED 10:42
DX: S91.111A Laceration without foreign body of right great toe without damage to nail, initial encounter (principal); W26.8XXA Contact with other sharp object(s), not elsewhere classified, initial encounter; Y92.009 Unspecified place in unspecified non-institutional (private) residence as the place of occurrence of the external cause; Y93.89 Activity, other specified; Y99.8 Other external cause status; I50.20 Unspecified systolic (congestive) heart failure; I25.2 Old myocardial infarction; I11.9 Hypertensive heart disease without heart failure; E78.5 Hyperlipidemia, unspecified; J44.9 Chronic obstructive pulmonary disease, unspecified; Z86.73 Personal history of transient ischemic attack (TIA), and cerebral infarction without residual deficits; Z79.01 Long term (current) use of anticoagulants; F17.200 Nicotine dependence, unspecified, uncomplicated; Z79.899 Other long term (current) drug therapy; Z79.4 Long term (current) use of insulin; Z79.51 Long term (current) use of inhaled steroids

== ENCOUNTER → 2023-07-13 | Outpatient (CLI) | payer MEDICARE, MEDICAID ==
[~2023-07-13] MED LIST changes: +ALBU8.5H; +BACI500O8 TOP; +CEPH500C PO; -EFFE150C2 PO; +EFFE150C3 PO
[2023-07-13 12:43] LABS: BASO # 0.1 10^3/uL (0.0-0.2); BASO % 0.5 % (0.0-1.0); EOS # 0.2 10^3/uL (0.0-0.5); EOS % 2.2 % (0.0-3.0); HEMATOCRIT 46.7 % (42.0-52.0); HEMOGLOBIN 15.5 g/dl (13.5-17.5); LYMPH # 1.9 10^3/uL (1.5-5.0); LYMPH % 17.5 % (24.0-44.0); MEAN CORPUSCULAR HEMOGLOBIN 31.7 pg (27.0-33.0); MEAN CORPUSCULAR HGB CONC 33.2 g/dl (32.0-36.5); MEAN CORPUSCULAR VOLUME 95.5 fl (80.0-96.0); MONO # 0.5 10^3/uL (0.0-0.8); MONO % 4.9 % (2.0-8.0); NEUTROPHILS # 8.2 10^3/uL (1.5-8.5); NEUTROPHILS % 74.4 % (36.0-66.0); PLATELET COUNT, AUTOMATED 233 10^3/uL (150-450); RED BLOOD COUNT 4.89 10^6/uL (4.30-6.10)
[2023-07-13 13:09] LABS: ALBUMIN 3.4 G/DL (3.2-5.2); ALKALINE PHOSPHATASE 82 U/L (46-116); ALT/SGPT 27 U/L (7.0-40); AST/SGOT 12 U/L (<34); BILIRUBIN,TOTAL 0.7 MG/DL (0.3-1.2); BLOOD UREA NITROGEN 14 MG/DL (9-23); CALCIUM LEVEL 9.7 MG/DL (8.3-10.6); CARBON DIOXIDE LEVEL 26 MMOL/L (20-31); CHLORIDE LEVEL 106 MMOL/L (98-107); CREATININE FOR GFR 0.96 MG/DL (0.70-1.30); GLOMERULAR FILTRATION RATE > 60.0 (>49); GLUCOSE, FASTING 243 MG/DL (74-106); MAGNESIUM LEVEL 1.8 MG/DL (1.8-2.4); POTASSIUM SERUM 4.2 MMOL/L (3.5-5.1); SODIUM LEVEL 139 MMOL/L (136-145); TOTAL PROTEIN 6.6 G/DL (5.7-8.2)
== END ==
LOC: M RAD 12:04
PROVIDERS: ATTEND Internal Medicine Cardiovascular Disease
DX: I50.42 Chronic combined systolic (congestive) and diastolic (congestive) heart failure (principal); J84.10 Pulmonary fibrosis, unspecified; J44.1 Chronic obstructive pulmonary disease with (acute) exacerbation

== ENCOUNTER → 2023-07-18 | Outpatient (CLI) | payer MEDICARE, MEDICAID | LOC: M EKG 15:25 | PROVIDERS: ATTEND Internal Medicine Cardiovascular Disease | DX: I48.0 Paroxysmal atrial fibrillation (principal); I44.0 Atrioventricular block, first degree ==

== ENCOUNTER → 2023-08-18 | Outpatient (CLI) | payer MEDICARE, MEDICAID ==
[2023-08-18 13:54] LABS: BASO # 0.1 10^3/uL (0.0-0.2); BASO % 0.4 % (0.0-1.0); EOS # 0.3 10^3/uL (0.0-0.5); EOS % 2.6 % (0.0-3.0); HEMATOCRIT 48.1 % (42.0-52.0); HEMOGLOBIN 15.6 g/dl (13.5-17.5); LYMPH # 1.8 10^3/uL (1.5-5.0); LYMPH % 15.3 % (24.0-44.0); MEAN CORPUSCULAR HEMOGLOBIN 31.5 pg (27.0-33.0); MEAN CORPUSCULAR HGB CONC 32.4 g/dl (32.0-36.5); MONO # 0.7 10^3/uL (0.0-0.8); NEUTROPHILS # 8.8 10^3/uL (1.5-8.5); NEUTROPHILS % 75.3 % (36.0-66.0); PLATELET COUNT, AUTOMATED 248 10^3/uL (150-450); RED BLOOD COUNT 4.96 10^6/uL (4.30-6.10); WHITE BLOOD COUNT 11.7 10^3/uL (4.0-10.0)
[2023-08-18 13:55] LABS: PSA SCREENING 0.84 NG/ML (< 4.00)
[2023-08-18 13:56] LABS: ALBUMIN 3.4 G/DL (3.2-5.2); ALKALINE PHOSPHATASE 74 U/L (46-116); ALT/SGPT 26 U/L (7.0-40); AST/SGOT 15 U/L (<34); BILIRUBIN,TOTAL 0.7 MG/DL (0.3-1.2); BLOOD UREA NITROGEN 19 MG/DL (9-23); CARBON DIOXIDE LEVEL 28 MMOL/L (20-31); CHLORIDE LEVEL 105 MMOL/L (98-107); CHOLESTEROL LEVEL 116 MG/DL (<200); CHOLESTEROL RISK RATIO 2.95 (<5); CREATININE FOR GFR 1.07 MG/DL (0.70-1.30); GLOMERULAR FILTRATION RATE > 60.0 (>49); GLUCOSE, FASTING 195 MG/DL (74-106); HDL CHOLESTEROL 39.2 MG/DL (>40); LDL CHOLESTEROL 58.2 MG/DL (<100); NON-HDL-C 76.8 MG/DL; POTASSIUM SERUM 4.8 MMOL/L (3.5-5.1); SODIUM LEVEL 138 MMOL/L (136-145); TOTAL PROTEIN 6.5 G/DL (5.7-8.2); TRIGLYCERIDES LEVEL 93 MG/DL (<150)
[2023-08-18 14:13] LABS: HEMOGLOBIN A1c 9.1 % (4.0-6.0)
== END ==
LOC: M PLALAB 10:21
PROVIDERS: ATTEND Nurse Practitioner Family
DX: E11.42 Type 2 diabetes mellitus with diabetic polyneuropathy (principal); Z12.5 Encounter for screening for malignant neoplasm of prostate; E78.5 Hyperlipidemia, unspecified; I48.0 Paroxysmal atrial fibrillation
CPT/HCPCS: 36415; 80053; 80061; 83036; 85025; G0103

== ENCOUNTER → 2023-09-07 | Outpatient (CLI) | payer MEDICARE, MEDICAID | LOC: M PLAIMG 12:28 | PROVIDERS: ATTEND Internal Medicine Cardiovascular Disease | DX: I50.42 Chronic combined systolic (congestive) and diastolic (congestive) heart failure (principal) ==

== ENCOUNTER → 2023-10-20 | Outpatient (CLI) | payer MEDICARE, MEDICAID ==
[2023-10-20 17:51] LABS: ALBUMIN 3.6 G/DL (3.2-5.2); BLOOD UREA NITROGEN 17 MG/DL (9-23); CALCIUM LEVEL 9.9 MG/DL (8.3-10.6); CARBON DIOXIDE LEVEL 28 MMOL/L (20-31); CHLORIDE LEVEL 100 MMOL/L (98-107); CREATININE FOR GFR 0.94 MG/DL (0.70-1.30); GLOMERULAR FILTRATION RATE > 60.0 (>49); GLUCOSE, FASTING 252 MG/DL (74-106); PHOSPHORUS LEVEL 3.4 MG/DL (2.4-5.1); POTASSIUM SERUM 4.2 MMOL/L (3.5-5.1); SODIUM LEVEL 136 MMOL/L (136-145)
[2023-10-20 17:57] LABS: HEMOGLOBIN 15.8 g/dl (13.5-17.5); MEAN CORPUSCULAR HEMOGLOBIN 31.9 pg (27.0-33.0); MEAN CORPUSCULAR HGB CONC 32.9 g/dl (32.0-36.5); MEAN CORPUSCULAR VOLUME 96.8 fl (80.0-96.0); PLATELET COUNT, AUTOMATED 278 10^3/uL (150-450); RED BLOOD COUNT 4.96 10^6/uL (4.30-6.10); WHITE BLOOD COUNT 10.4 10^3/uL (4.0-10.0)
== END ==
LOC: M PLALAB 15:14
PROVIDERS: ATTEND Internal Medicine Cardiovascular Disease
DX: R07.2 Precordial pain (principal); I50.32 Chronic diastolic (congestive) heart failure; Z95.5 Presence of coronary angioplasty implant and graft; I11.0 Hypertensive heart disease with heart failure

== ENCOUNTER → 2023-11-15 | Outpatient (REF) | payer MEDICARE, MEDICAID, OTHER | LOC: M SFHCPLAZ 16:29 | PROVIDERS: ATTEND Student in an Organized Health Care Education/Training Program | DX: R09.89 Other specified symptoms and signs involving the circulatory and respiratory systems (principal) ==

== ENCOUNTER → 2024-01-30 | Outpatient (CLI) | payer MEDICARE, MEDICAID ==
[~2024-01-30] MED LIST changes: +DOXY-323 PO; -DOXY-443 PO
[2024-01-30 15:27] LABS: HEMATOCRIT 45.2 % (42.0-52.0); HEMOGLOBIN 15.2 g/dl (13.5-17.5); MEAN CORPUSCULAR HEMOGLOBIN 31.6 pg (27.0-33.0); MEAN CORPUSCULAR HGB CONC 33.6 g/dl (32.0-36.5); PLATELET COUNT, AUTOMATED 237 10^3/uL (150-450); RED BLOOD COUNT 4.81 10^6/uL (4.30-6.10); WHITE BLOOD COUNT 12.8 10^3/uL (4.0-10.0)
[2024-01-30 15:30] LABS: ALBUMIN 3.5 G/DL (3.2-5.2); ALKALINE PHOSPHATASE 95 U/L (46-116); ALT/SGPT 27 U/L (7.0-40); AST/SGOT < 8 U/L (<34); BILIRUBIN,TOTAL 0.8 MG/DL (0.3-1.2); BLOOD UREA NITROGEN 13 MG/DL (9-23); CALCIUM LEVEL 9.7 MG/DL (8.3-10.6); CARBON DIOXIDE LEVEL 30 MMOL/L (20-31); CHLORIDE LEVEL 99 MMOL/L (98-107); CREATININE FOR GFR 0.88 MG/DL (0.70-1.30); GLOMERULAR FILTRATION RATE > 60.0 (>49); GLUCOSE, FASTING 397 MG/DL (74-106); POTASSIUM SERUM 4.8 MMOL/L (3.5-5.1); SODIUM LEVEL 134 MMOL/L (136-145); TOTAL PROTEIN 6.7 G/DL (5.7-8.2)
== END ==
LOC: M PLALAB 12:48
PROVIDERS: ATTEND Internal Medicine Cardiovascular Disease
DX: I50.22 Chronic systolic (congestive) heart failure (principal); I48.0 Paroxysmal atrial fibrillation; I25.10 Atherosclerotic heart disease of native coronary artery without angina pectoris; I11.0 Hypertensive heart disease with heart failure

== ENCOUNTER → 2024-03-13 | Outpatient (CLI) | payer MEDICARE, MEDICAID ==
[~2024-03-13] MED LIST changes: -ALBU8.5H; +ALBU8.5H INH; +AMIO200T49 PO; +JANU100T PO; +METO1TAB87 PO; +OMEGCAP4 PO; +POTA-136 PO; +TIRZ7.5P SC
[2024-03-13 15:29] LABS: BASO # 0.1 10^3/uL (0.0-0.2); BASO % 0.6 % (0.0-1.0); EOS # 0.6 10^3/uL (0.0-0.5); EOS % 4.9 % (0.0-3.0); HEMATOCRIT 34.9 % (42.0-52.0); HEMOGLOBIN 11.2 g/dl (13.5-17.5); LYMPH # 2.1 10^3/uL (1.5-5.0); LYMPH % 17.7 % (24.0-44.0); MEAN CORPUSCULAR HEMOGLOBIN 30.4 pg (27.0-33.0); MEAN CORPUSCULAR HGB CONC 32.1 g/dl (32.0-36.5); MEAN CORPUSCULAR VOLUME 94.6 fl (80.0-96.0); MONO # 0.8 10^3/uL (0.0-0.8); MONO % 6.4 % (2.0-8.0); NEUTROPHILS # 8.4 10^3/uL (1.5-8.5); PLATELET COUNT, AUTOMATED 597 10^3/uL (150-450); RED BLOOD COUNT 3.69 10^6/uL (4.30-6.10)
[2024-03-13 16:00] LABS: CREATININE, URINE 33.2 MG/DL; MALB URINE SIEMENS < 3.0 MG/L
[2024-03-13 16:00] LABS: ALKALINE PHOSPHATASE 93 U/L (46-116); ALT/SGPT 51 U/L (7.0-40); AST/SGOT 16 U/L (<34); BILIRUBIN,TOTAL 0.4 MG/DL (0.3-1.2); BLOOD UREA NITROGEN 15 MG/DL (9-23); CALCIUM LEVEL 8.8 MG/DL (8.3-10.6); CARBON DIOXIDE LEVEL 30 MMOL/L (20-31); CHLORIDE LEVEL 102 MMOL/L (98-107); CHOLESTEROL LEVEL 106 MG/DL (<200); CHOLESTEROL RISK RATIO 2.25 (<5); CREATININE FOR GFR 1.25 MG/DL (0.70-1.30); GLOMERULAR FILTRATION RATE > 60.0 (>49); GLUCOSE, FASTING 259 MG/DL (74-106); LDL CHOLESTEROL 41.6 MG/DL (<100); MAGNESIUM LEVEL 2.6 MG/DL (1.8-2.4); POTASSIUM SERUM 4.4 MMOL/L (3.5-5.1); SODIUM LEVEL 136 MMOL/L (136-145); TOTAL PROTEIN 6.5 G/DL (5.7-8.2); TRIGLYCERIDES LEVEL 87 MG/DL (<150)
[2024-03-13 16:14] LABS: HEMOGLOBIN A1c 9.5 % (4.0-6.0)
== END ==
LOC: M PLALAB 14:06
PROVIDERS: ATTEND Nurse Practitioner Family
DX: E11.42 Type 2 diabetes mellitus with diabetic polyneuropathy (principal); E78.5 Hyperlipidemia, unspecified; I11.0 Hypertensive heart disease with heart failure

== ENCOUNTER 2024-03-21 12:47 | Inpatient (IN) | payer MEDICARE, MEDICAID ==
[~2024-03-21] VITALS: Ht 170.2 cm; Wt 143.3 kg
[~2024-03-21 12:47] MED LIST changes: -AMIO200T49 PO; -JANU100T PO; -METO1TAB87 PO; -OMEGCAP4 PO; -POTA-136 PO; -TIRZ7.5P SC
[2024-03-21 14:39] LABS: BASO # 0.1 10^3/uL (0.0-0.2); BASO % 0.6 % (0.0-1.0); EOS # 0.7 10^3/uL (0.0-0.5); EOS % 6.5 % (0.0-3.0); HEMATOCRIT 40.3 % (42.0-52.0); HEMOGLOBIN 12.5 g/dl (13.5-17.5); LYMPH # 1.6 10^3/uL (1.5-5.0); LYMPH % 14.8 % (24.0-44.0); MEAN CORPUSCULAR HEMOGLOBIN 30.5 pg (27.0-33.0); MEAN CORPUSCULAR VOLUME 98.3 fl (80.0-96.0); MONO # 0.6 10^3/uL (0.0-0.8); NEUTROPHILS # 7.6 10^3/uL (1.5-8.5); NEUTROPHILS % 71.7 % (36.0-66.0); PLATELET COUNT, AUTOMATED 407 10^3/uL (150-450); WHITE BLOOD COUNT 10.6 10^3/uL (4.0-10.0)
[2024-03-21 15:05] LABS: ALKALINE PHOSPHATASE 102 U/L (46-116); ALT/SGPT 24 U/L (7.0-40); AST/SGOT 9 U/L (<34); BILIRUBIN,DIRECT 0.3 MG/DL (<0.4); BILIRUBIN,TOTAL 0.7 MG/DL (0.3-1.2); BLOOD UREA NITROGEN 8 MG/DL (9-23); CALCIUM LEVEL 8.8 MG/DL (8.3-10.6); CARBON DIOXIDE LEVEL 34 MMOL/L (20-31); CHLORIDE LEVEL 103 MMOL/L (98-107); CREATININE FOR GFR 1.17 MG/DL (0.70-1.30); GLOMERULAR FILTRATION RATE > 60.0 (>49); GLUCOSE, FASTING 205 MG/DL (74-106); POTASSIUM SERUM 4.5 MMOL/L (3.5-5.1); SODIUM LEVEL 140 MMOL/L (136-145); TOTAL PROTEIN 6.9 G/DL (5.7-8.2)
[2024-03-21 15:07] LABS: INR 1.18; PARTIAL THROMBOPLASTIN TIME 28.6 SECONDS (24.8-34.2); PROTHROMBIN TIME 14.6 SECONDS (12.5-14.5)
[2024-03-21 15:12] LABS: PROCALCITONIN 0.06 ng/ml
[2024-03-21 15:27] LABS: ERYTHROCYTE SEDIMENTATION RATE 58 mm/hr (0-20)
[2024-03-21] MEDS: FUROSEMIDE 100MG/10ML VIAL IV ONE (16:32)
[2024-03-21] MEDS ORDERED: TIRZ7.5P SC (16:40)
[2024-03-21] MEDS ORDERED: AMIO200T49 PO (16:40)
[2024-03-21] MEDS ORDERED: ISOVUE-370 76% 100ML VIAL As Ordered ONE (16:42)
[2024-03-21] MEDS ORDERED: METO1TAB87 PO (16:59)
[2024-03-21] MEDS ORDERED: OMEGCAP4 PO (16:59)
[2024-03-21] MEDS ORDERED: GLUCAGON INJ 1MG VIAL SC PRN (17:00)
[2024-03-21] MEDS ORDERED: GLUCOSE 4 GM CHEW PO PRN (17:00)
[2024-03-21] MEDS ORDERED: DEXTROSE 50% 50ML SYRINGE IV PRN (17:00)
[2024-03-21] MEDS ORDERED: POTA-136 PO (17:02)
[2024-03-21] MEDS ORDERED: JANU100T PO (17:02)
[2024-03-21] MEDS ORDERED: HOME MED LIST COMPLETE! XX SCH (17:10)
[2024-03-21] MEDS ORDERED: ALBUTEROL 90 MCG/ACT 8GM HFA INHALER INH PRN (18:35)
[2024-03-21] MEDS ORDERED: ACETAMINOPHEN 500 MG TAB PO PRN (18:35)
[2024-03-21] MEDS ORDERED: NITROGLYCERIN 0.4MG SUBL TABLET SL PRN (18:35)
[2024-03-21] MEDS: INSULIN LISPRO (NovoLOG) PER UNIT SC SCH ×2 (18:45→21:00)
[2024-03-21] MEDS: LEVEMIR (INSULIN DETEMIR) 1 UNITS/0.01ML SC SCH (21:43)
[2024-03-21] MEDS: APIXABAN 5 MG TAB (ELIQUIS) PO SCH (21:43)
[2024-03-21] MEDS: POTASSIUM CHLORIDE 10MEQ SR TABLET PO SCH (21:43)
[2024-03-21] MEDS: ATORVASTATIN 20 MG TAB PO SCH (21:43)
[2024-03-21] MEDS: METOPROLOL TART 12.5 MG PER 1/2 TAB PO SCH (21:47)
[2024-03-22] MEDS: FUROSEMIDE 40MG/4ML VIAL IV SCH (01:01)
[2024-03-22 04:30] VITALS: BP 148/84; TEMP 97.1; O2SAT 97
[2024-03-22 05:00] VITALS: BP 129/70; TEMP 98.1; O2SAT 98
[2024-03-22 06:03] LABS: HEMATOCRIT 40.4 % (42.0-52.0); HEMOGLOBIN 12.5 g/dl (13.5-17.5); MEAN CORPUSCULAR HEMOGLOBIN 30.2 pg (27.0-33.0); MEAN CORPUSCULAR HGB CONC 30.9 g/dl (32.0-36.5); MEAN CORPUSCULAR VOLUME 97.6 fl (80.0-96.0); PLATELET COUNT, AUTOMATED 386 10^3/uL (150-450); RED BLOOD COUNT 4.14 10^6/uL (4.30-6.10)
[2024-03-22 06:30] LABS: BLOOD UREA NITROGEN 8 MG/DL (9-23); CALCIUM LEVEL 8.9 MG/DL (8.3-10.6); CARBON DIOXIDE LEVEL 33 MMOL/L (20-31); CHLORIDE LEVEL 104 MMOL/L (98-107); GLOMERULAR FILTRATION RATE > 60.0 (>49); GLUCOSE, FASTING 140 MG/DL (74-106); MAGNESIUM LEVEL 2.5 MG/DL (1.8-2.4); POTASSIUM SERUM 4.1 MMOL/L (3.5-5.1); SODIUM LEVEL 142 MMOL/L (136-145)
[2024-03-22 07:40] VITALS: BP 102/61; TEMP 97.4; O2SAT 94
[2024-03-22] MEDS: SITagliptin 50 MG TAB (JANUVIA) PO SCH (09:05)
[2024-03-22 09:06] VITALS: BP 116/64
[2024-03-22] MEDS: AMIODARONE 200 MG TAB (PACERONE) PO SCH (09:06)
[2024-03-22] MEDS: DOCUSATE SODIUM 100MG CAPSULE PO SCH (09:06)
[2024-03-22] MEDS: PANTOPRAZOLE 40MG TAB (PROTONIX) PO SCH (09:06)
[2024-03-22] MEDS: OMEGA-3 1000MG CAPSULE PO SCH (09:07)
[2024-03-22] MEDS ORDERED: SPIR-10 PO (11:05)
[2024-03-22] MEDS ORDERED: LASI40TA9 PO (11:05)
[2024-03-22] MEDS ORDERED: DOXY100T27 PO (11:06)
[2024-03-22] MEDS ORDERED: METO5TA PO (11:11)
[2024-03-22 12:00] VITALS: BP 134/64; TEMP 97.6; O2SAT 96
== END 2024-03-22 13:36 | disposition home health service (06) | DRG 292 ==
LOC: M ED 12:47 → M ED INP 03-22 00:33 → M PCU 03-22 04:25
PROVIDERS: ADMIT Family Medicine; ATTEND Internal Medicine
DX: I50.23 Acute on chronic systolic (congestive) heart failure (principal); L03.115 Cellulitis of right lower limb; J44.9 Chronic obstructive pulmonary disease, unspecified; I48.0 Paroxysmal atrial fibrillation; E11.9 Type 2 diabetes mellitus without complications; E78.5 Hyperlipidemia, unspecified; I25.10 Atherosclerotic heart disease of native coronary artery without angina pectoris; Z95.1 Presence of aortocoronary bypass graft; K21.9 Gastro-esophageal reflux disease without esophagitis; K59.09 Other constipation; Z79.01 Long term (current) use of anticoagulants; Z79.899 Other long term (current) drug therapy; Z87.891 Personal history of nicotine dependence

== ENCOUNTER → 2024-04-02 | Outpatient (CLI) | payer MEDICARE, MEDICAID ==
[~2024-04-02] MED LIST changes: +AMIO200T49 PO; +DOXY100T27 PO; +JANU100T PO; +METO1TAB87 PO; +METO5TA PO; +OMEGCAP4 PO; +POTA-136 PO; +SPIR-10 PO; +TIRZ7.5P SC
[2024-04-02 13:14] LABS: BASO # 0.1 10^3/uL (0.0-0.2); BASO % 0.6 % (0.0-1.0); EOS # 0.9 10^3/uL (0.0-0.5); EOS % 5.9 % (0.0-3.0); HEMATOCRIT 47.3 % (42.0-52.0); HEMOGLOBIN 15.5 g/dl (13.5-17.5); LYMPH # 1.9 10^3/uL (1.5-5.0); LYMPH % 12.3 % (24.0-44.0); MEAN CORPUSCULAR HEMOGLOBIN 30.7 pg (27.0-33.0); MEAN CORPUSCULAR HGB CONC 32.8 g/dl (32.0-36.5); MEAN CORPUSCULAR VOLUME 93.7 fl (80.0-96.0); MONO # 1.1 10^3/uL (0.0-0.8); NEUTROPHILS # 11.1 10^3/uL (1.5-8.5); NEUTROPHILS % 73.6 % (36.0-66.0); PLATELET COUNT, AUTOMATED 346 10^3/uL (150-450); RED BLOOD COUNT 5.05 10^6/uL (4.30-6.10)
[2024-04-02 13:19] LABS: CALCIUM LEVEL 10.2 MG/DL (8.3-10.6); CREATININE FOR GFR 1.45 MG/DL (0.70-1.30); GLOMERULAR FILTRATION RATE 51.8 (>49); POTASSIUM SERUM 3.6 MMOL/L (3.5-5.1)
== END ==
LOC: M PLALAB 10:48
PROVIDERS: ATTEND Nurse Practitioner Family
DX: I11.0 Hypertensive heart disease with heart failure (principal)

== ENCOUNTER → 2024-04-13 | Outpatient (CLI) | payer MEDICARE ==
[~2024-04-13] MED LIST changes: -DOXY-323 PO; +DOXY-441 PO; -VITA500C19 PO; +VITA500C22 PO
== END ==
LOC: M EKG 13:05
PROVIDERS: ATTEND Internal Medicine Cardiovascular Disease
DX: I48.0 Paroxysmal atrial fibrillation (principal); I44.0 Atrioventricular block, first degree

== ENCOUNTER → 2024-05-28 | Outpatient (CLI) | payer MEDICARE, MEDICAID ==
[2024-05-28 15:05] LABS: HEMATOCRIT 42.7 % (42.0-52.0); HEMOGLOBIN 14.1 g/dl (13.5-17.5); MEAN CORPUSCULAR HEMOGLOBIN 30.9 pg (27.0-33.0); MEAN CORPUSCULAR VOLUME 93.6 fl (80.0-96.0); PLATELET COUNT, AUTOMATED 292 10^3/uL (150-450); RED BLOOD COUNT 4.56 10^6/uL (4.30-6.10); WHITE BLOOD COUNT 11.2 10^3/uL (4.0-10.0)
[2024-05-28 15:30] LABS: THYROID STIMULATING HORMONE 7.623 uIU/ML (0.55-4.78)
[2024-05-28 15:31] LABS: ALBUMIN 3.2 G/DL (3.2-5.2); ALKALINE PHOSPHATASE 81 U/L (40-129); ALT/SGPT 14 U/L (7.0-40); AST/SGOT 8 U/L (<34); BILIRUBIN,TOTAL 0.3 MG/DL (0.3-1.2); BLOOD UREA NITROGEN 11 MG/DL (9-23); CALCIUM LEVEL 8.8 MG/DL (8.3-10.6); CARBON DIOXIDE LEVEL 31 MMOL/L (20-31); CHLORIDE LEVEL 102 MMOL/L (98-107); CREATININE FOR GFR 1.04 MG/DL (0.70-1.30); GLOMERULAR FILTRATION RATE > 60.0 (>49); GLUCOSE, FASTING 167 MG/DL (74-106); POTASSIUM SERUM 4.7 MMOL/L (3.5-5.1); SODIUM LEVEL 137 MMOL/L (136-145); TOTAL PROTEIN 6.8 G/DL (5.7-8.2)
== END ==
LOC: M PLAIMG 13:50
PROVIDERS: ATTEND Internal Medicine Cardiovascular Disease
DX: I50.22 Chronic systolic (congestive) heart failure (principal); R94.31 Abnormal electrocardiogram [ECG] [EKG]; I11.0 Hypertensive heart disease with heart failure

== ENCOUNTER → 2024-09-17 | Outpatient (CLI) | payer MEDICARE, MEDICAID ==
[~2024-09-17] MED LIST changes: +ATOR-398 PO; -LIPI80TA PO; +NYST1POW3 TOP; -NYST1POW9 TOP
[2024-09-17 14:56] LABS: BASO # 0.1 10^3/uL (0.0-0.2); BASO % 0.5 % (0.0-1.0); EOS # 0.3 10^3/uL (0.0-0.5); EOS % 2.4 % (0.0-3.0); HEMATOCRIT 47.7 % (42.0-52.0); HEMOGLOBIN 15.7 g/dl (13.5-17.5); LYMPH # 1.5 10^3/uL (1.5-5.0); LYMPH % 11.1 % (24.0-44.0); MEAN CORPUSCULAR HGB CONC 32.9 g/dl (32.0-36.5); MEAN CORPUSCULAR VOLUME 97.1 fl (80.0-96.0); MONO # 0.7 10^3/uL (0.0-0.8); MONO % 5.3 % (2.0-8.0); NEUTROPHILS # 10.5 10^3/uL (1.5-8.5); NEUTROPHILS % 79.9 % (36.0-66.0); PLATELET COUNT, AUTOMATED 291 10^3/uL (150-450); RED BLOOD COUNT 4.91 10^6/uL (4.30-6.10); WHITE BLOOD COUNT 13.1 10^3/uL (4.0-10.0)
[2024-09-17 15:28] LABS: ALBUMIN 3.6 G/DL (3.2-5.2); ALKALINE PHOSPHATASE 92 U/L (40-129); ALT/SGPT 17 U/L (7.0-40); AST/SGOT 11 U/L (<34); BILIRUBIN,TOTAL 0.8 MG/DL (0.3-1.2); BLOOD UREA NITROGEN 28 MG/DL (9-23); CALCIUM LEVEL 9.2 MG/DL (8.3-10.6); CARBON DIOXIDE LEVEL 27 MMOL/L (20-31); CHLORIDE LEVEL 98 MMOL/L (98-107); CREATININE FOR GFR 1.12 MG/DL (0.70-1.30); GLOMERULAR FILTRATION RATE > 60.0 (>49); GLUCOSE, FASTING 272 MG/DL (74-106); MAGNESIUM LEVEL 2.3 MG/DL (1.8-2.4); POTASSIUM SERUM 4.2 MMOL/L (3.5-5.1); SODIUM LEVEL 133 MMOL/L (136-145); TOTAL PROTEIN 7.5 G/DL (5.7-8.2)
[2024-09-17 15:29] LABS: THYROID STIMULATING HORMONE 3.638 uIU/ML (0.55-4.78)
== END ==
LOC: M PLALAB 10:21
PROVIDERS: ATTEND Registered Nurse
DX: I48.0 Paroxysmal atrial fibrillation (principal); I50.22 Chronic systolic (congestive) heart failure

== ENCOUNTER → 2024-09-17 | Outpatient (CLI) | payer MEDICARE, MEDICAID ==
[2024-09-17 14:52] LABS: BASO # 0.1 10^3/uL (0.0-0.2); BASO % 0.4 % (0.0-1.0); EOS # 0.3 10^3/uL (0.0-0.5); EOS % 2.1 % (0.0-3.0); HEMATOCRIT 48.2 % (42.0-52.0); LYMPH # 1.3 10^3/uL (1.5-5.0); LYMPH % 10.4 % (24.0-44.0); MEAN CORPUSCULAR HEMOGLOBIN 32.7 pg (27.0-33.0); MEAN CORPUSCULAR HGB CONC 33.2 g/dl (32.0-36.5); MEAN CORPUSCULAR VOLUME 98.4 fl (80.0-96.0); MONO # 0.7 10^3/uL (0.0-0.8); MONO % 5.5 % (2.0-8.0); NEUTROPHILS # 10.2 10^3/uL (1.5-8.5); PLATELET COUNT, AUTOMATED 278 10^3/uL (150-450); WHITE BLOOD COUNT 12.6 10^3/uL (4.0-10.0)
[2024-09-17 15:01] LABS: ALBUMIN 3.8 G/DL (3.2-5.2); ALKALINE PHOSPHATASE 93 U/L (40-129); ALT/SGPT 16 U/L (7.0-40); AST/SGOT 13 U/L (<34); BILIRUBIN,TOTAL 0.8 MG/DL (0.3-1.2); BLOOD UREA NITROGEN 27 MG/DL (9-23); CALCIUM LEVEL 9.4 MG/DL (8.3-10.6); CARBON DIOXIDE LEVEL 26 MMOL/L (20-31); CHLORIDE LEVEL 97 MMOL/L (98-107); CHOLESTEROL LEVEL 200 MG/DL (<200); CHOLESTEROL RISK RATIO 4.06 (<5); CREATININE FOR GFR 1.07 MG/DL (0.70-1.30); GLOMERULAR FILTRATION RATE > 60.0 (>49); GLUCOSE, FASTING 272 MG/DL (74-106); HDL CHOLESTEROL 49.2 MG/DL (>40); MAGNESIUM LEVEL 2.4 MG/DL (1.8-2.4); NON-HDL-C 150.8 MG/DL; POTASSIUM SERUM 4.3 MMOL/L (3.5-5.1); PSA SCREENING 0.88 NG/ML (< 4.00); SODIUM LEVEL 134 MMOL/L (136-145); TOTAL PROTEIN 7.7 G/DL (5.7-8.2); TRIGLYCERIDES LEVEL 174 MG/DL (<150)
[2024-09-17 15:02] LABS: THYROID STIMULATING HORMONE 3.496 uIU/ML (0.55-4.78)
[2024-09-17 15:26] LABS: HEMOGLOBIN A1c 8.9 % (4.0-6.0)
[2024-09-17 16:02] LABS: CREATININE, URINE 8.2 MG/DL; MALB URINE SIEMENS < 3.0 MG/L
== END ==
LOC: M PLALAB 10:24
PROVIDERS: ATTEND Nurse Practitioner Family
DX: I11.0 Hypertensive heart disease with heart failure (principal); E11.42 Type 2 diabetes mellitus with diabetic polyneuropathy; E78.5 Hyperlipidemia, unspecified; Z12.5 Encounter for screening for malignant neoplasm of prostate; I48.0 Paroxysmal atrial fibrillation; I50.22 Chronic systolic (congestive) heart failure
CPT/HCPCS: 36415; 80053; 80061; 82043; 83036; 83735; 83880; 84439; 84443; 85025; G0103

== ENCOUNTER → 2024-09-24 | Outpatient (CLI) | payer MEDICARE, MEDICAID | LOC: M EKG 09:24 | PROVIDERS: ATTEND Registered Nurse | DX: I48.0 Paroxysmal atrial fibrillation (principal) ==

== ENCOUNTER → 2025-02-28 | Outpatient (CLI) | payer MEDICARE, MEDICAID ==
[~2025-02-28] MED LIST changes: -AMIO200T49 PO; +AMIO200T54 PO; -FLOM0.4C39 PO; +TAMS-18 PO
[2025-02-28 10:28] LABS: BASO # 0.1 10^3/uL (0.0-0.2); BASO % 0.5 % (0.0-1.0); EOS # 0.3 10^3/uL (0.0-0.5); EOS % 2.9 % (0.0-3.0); LYMPH # 1.2 10^3/uL (1.5-5.0); LYMPH % 10.2 % (24.0-44.0); MONO # 0.7 10^3/uL (0.0-0.8); MONO % 6.0 % (2.0-8.0); NEUTROPHILS # 9.5 10^3/uL (1.5-8.5); NEUTROPHILS % 80.0 % (36.0-66.0); PLATELET COUNT, AUTOMATED 240 10^3/uL (150-450)
[2025-02-28 10:55] LABS: ALT/SGPT 34.0 U/L (7.0-40); AST/SGOT 22.0 U/L (<34); CALCIUM LEVEL 9.1 MG/DL (8.3-10.6); CARBON DIOXIDE LEVEL 31.0 MMOL/L (20-31); CHLORIDE LEVEL 98.0 MMOL/L (98-107); CHOLESTEROL LEVEL 211.0 MG/DL (<200); CHOLESTEROL RISK RATIO 5.03 (<5); CREATININE FOR GFR 1.14 MG/DL (0.70-1.30); GLOMERULAR FILTRATION RATE 70.5 (>49); LDL CHOLESTEROL 132.1 MG/DL (<100); MAGNESIUM LEVEL 2.1 MG/DL (1.8-2.4); NON-HDL-C 169.1 MG/DL; POTASSIUM SERUM 3.9 MMOL/L (3.5-5.1); PSA SCREENING 1.27 NG/ML (< 4.00); SODIUM LEVEL 139.0 MMOL/L (136-145); TRIGLYCERIDES LEVEL 185.0 MG/DL (<150)
[2025-02-28 10:56] LABS: FREE T4 1.33 NG/DL (0.89-1.76)
[2025-02-28 11:16] LABS: ESTIMATED AVERAGE GLUCOSE 252.0 MG/DL (60-110)
[2025-02-28 14:35] LABS: CREATININE, URINE 44.1 MG/DL; MALB URINE SIEMENS < 3.0 MG/L
== END ==
LOC: M PLALAB 09:00
PROVIDERS: ATTEND Nurse Practitioner Family
DX: I11.0 Hypertensive heart disease with heart failure (principal); E11.42 Type 2 diabetes mellitus with diabetic polyneuropathy; E78.5 Hyperlipidemia, unspecified; I50.9 Heart failure, unspecified; Z12.5 Encounter for screening for malignant neoplasm of prostate
CPT/HCPCS: 36415; 80053; 80061; 82043; 83036; 83735; 84439; 84443; 85025; G0103

== ENCOUNTER → 2025-07-07 | Outpatient (CLI) | payer MEDICARE, MEDICAID ==
[2025-07-07 10:40] LABS: BASO # 0.1 10^3/uL (0.0-0.2); BASO % 0.4 % (0.0-1.0); EOS # 0.4 10^3/uL (0.0-0.5); EOS % 3.2 % (0.0-3.0); LYMPH # 1.2 10^3/uL (1.5-5.0); LYMPH % 9.0 % (24.0-44.0); MONO # 0.8 10^3/uL (0.0-0.8); MONO % 6.0 % (2.0-8.0); NEUTROPHILS # 10.6 10^3/uL (1.5-8.5); NEUTROPHILS % 80.9 % (36.0-66.0); PLATELET COUNT, AUTOMATED 293 10^3/uL (150-450)
[2025-07-07 11:03] LABS: ESTIMATED AVERAGE GLUCOSE 143.0 MG/DL (60-110)
[2025-07-07 11:12] LABS: CREATININE, URINE 73.2 MG/DL; MALB URINE SIEMENS 323.0 MG/L; MAU/CREAT RATIO 441.2 MCG/MG (0.0-30.0)
[2025-07-07 11:14] LABS: ALT/SGPT 22.0 U/L (7.0-40); AST/SGOT 20.0 U/L (<34); CALCIUM LEVEL 8.9 MG/DL (8.3-10.6); CARBON DIOXIDE LEVEL 30.0 MMOL/L (20-31); CHLORIDE LEVEL 101.0 MMOL/L (98-107); CHOLESTEROL LEVEL 113.0 MG/DL (<200); CHOLESTEROL RISK RATIO 2.45 (<5); CREATININE FOR GFR 1.17 MG/DL (0.70-1.30); GLOMERULAR FILTRATION RATE 68.3 (>49); LDL CHOLESTEROL 48.0 MG/DL (<100); MAGNESIUM LEVEL 2.1 MG/DL (1.8-2.4); NON-HDL-C 67.0 MG/DL; POTASSIUM SERUM 4.1 MMOL/L (3.5-5.1); PSA SCREENING 1.09 NG/ML (< 4.00); SODIUM LEVEL 140.0 MMOL/L (136-145); TRIGLYCERIDES LEVEL 95.0 MG/DL (<150)
[2025-07-07 11:18] LABS: FREE T4 1.21 NG/DL (0.89-1.76)
== END ==
LOC: M PLALAB 09:11
PROVIDERS: ATTEND Nurse Practitioner Family
DX: E11.42 Type 2 diabetes mellitus with diabetic polyneuropathy (principal); I11.0 Hypertensive heart disease with heart failure; E78.5 Hyperlipidemia, unspecified; Z12.5 Encounter for screening for malignant neoplasm of prostate; I50.9 Heart failure, unspecified
CPT/HCPCS: 36415; 80053; 80061; 82043; 83036; 83735; 84439; 84443; 85025; G0103